=== PATIENT | female | born 1965 | race Caucasian/White ===

== ENCOUNTER → 2017-06-12 | Outpatient (CLI) | payer BC ==
[~2017-06-12] MED LIST: AMITRIPTYLINE H10 M3 PO; AMITRIPTYLINE H25 M2 PO; AMITRIPTYLINE H75 M1 PO; AMITRIPTYLINE100 MG PO; FLEXERIL PO; HYDROCODON-ACE1 EAC5 PO; IMITREX 50 MG T50 MG PO; LISINOPRIL10 MG PO; LYRICA 50 MG50 MG PO; LYRICA 75 MG CA75 MG PO; LYRICA100 MG PO; MEDROLDOSEPACK PO; METOPROLOL SUC100 MG PO; MOBIC15 MG PO; NEURONTIN800 MG PO; SERTRALINE HCL50 MG PO; WELLBUTRIN XL300 MG PO
--- NOTE | 2017-06-27 08:34 | PAINCON ---
[address] [address] PAIN MANAGEMENT CONSULTATION Name: NINO ARREDONDO Room: [facility] JUAN Patiño#: [id number] Admission: 06/12/17 Attend Phys: Yoli Wills MD Discharge: Date of : 61 Report #: [id number] THIS REPORT FOR: //name// CC: Yoli Nix DO DATE OF SERVICE: 06/12/2017 CHIEF COMPLAINT: "Pain that starts in my neck and shoots down into my left arm, which is stabbing." FOLLOWUP HISTORY: The patient is a 51-year-old female who has been referred to the pain clinic for evaluation of neck and arm pain. The patient states that she had a long history of cervical pain with pain radiating down into her arm. She treated this in a conservative method for about 10 years. The pain finally kolton to the level that it was quite problematic. She had undergone epidural steroid injections in the past. Because of failure of her situation to improve, she elected to undergo cervical treatment. She had a cervical operation about 3 months ago. She was taking hydrocodone approximately 130 mg daily. She had been on this regimen of opioid medications for the last 10 years with no untoward complications. She states that after the surgery, she stopped taking the medication and did reasonably well. There were no signs of withdrawal. She had no history of abuse of this medication. States that after stopping the medication, there were no untoward complications. After dismissal from the hospital, she was placed on a small amount of hydrocodone. She found that medication postop was helpful. After the hydrocodone use was completed, she was then placed on tramadol. She did not find the tramadol provided a significant amount of improvement. She felt that it was not much more helpful than nonsteroidal anti-inflammatory medications. She rates her pain as a 7/10 at this juncture. The patient moved to [place] to be with her daughter. She originally was in [place]. That is where her surgeon was. She states that she received her pain medications from her primary care physician in [place] and has not had any problems with her medications. She has not received any medications from a third green party or additional physicians. 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 She was aware of the requirements of opioid use as a result of working in the dentist's office. ALLERGIES: No known drug allergies. MEDICATIONS: Flexeril 10 mg daily, lisinopril 10 mg, metoprolol 100 mg, Zoloft 50 mg and has been taking this for about 2 years, Imitrex 50 mg, Wellbutrin-XL 300 mg, zolpidem 12.5 mg, used to take [place] 10/325 up to 120 mg per day prior to her neck fusion, which occurred in 02/2017. [place] [address] PAIN MANAGEMENT CONSULTATION Name: NINO ARREDONDO [facility] [id number] Admission: 06/12/17 Attend Phys: Yoli Wills MD Discharge: Date of : 61 Report #: [id number] PAST MEDICAL HISTORY: Anemia, asthma, hypertension, stomach problems, emotional problems with depression, irritable bowel syndrome, migraines, gastroesophageal reflux, chronic low back pain, and anxiety. PAST SURGICAL HISTORY: Neck fusion in 02/2017, bladder lift in 1998, hysterectomy in 10/2015, and bilateral salpingo-oophorectomy in 2016. 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 She has not worked in the last 8 months. Denies use of tobacco. Denies use of alcoholic beverages. Denies use of illicit drugs. Fifteen years of smoking history, quit in 2002. FAMILY HISTORY: Mother with asthma, migraines. Father with Alzheimer's. Daughter with Graves' disease. Son with asthma. Maternal aunt with breast cancer. Family status, mother is alive. Father is . Brother is alive. Daughter is alive. Son is alive. Maternal aunt . LABORATORY DATA: No laboratories values are available at the time of our interview. PHYSICAL EXAMINATION: VITAL SIGNS: Blood pressure 156/106, heart rate 107, respiratory rate 18, room air saturation 95%, temperature 97.3, height 5 feet 2 inches, weight 202 pounds, BMI is 36. GENERAL: The patient is a well-developed female in no distress. Appearance, appears stated age. Orientation, the patient is alert and oriented. Affect is appropriate. HEENT: Atraumatic. Ears and nose, no complaints. Buccal membranes were moist. NECK: No JVD, bruits, or masses. A well-healed proximally 2 inch incision at approximately C6 level in her neck. CHEST: Lungs are clear to auscultation. HEART: Regular rate without bruit. Normal S1, S2. ABDOMEN: Nontender. Bowel sounds present. MUSCULOSKELETAL: Spinal exam appears normal alignment. No evidence of scoliosis. No kyphosis. Gait appears slightly antalgic. The patient complains of pain in the left hip as well as some discomfort in the right low back area. Neck exam with palpation of the upper back musculature shows some increased soreness and tenderness in the area of the left scapula and rhomboid area. Cervical compression was not very problematic in a neutral position with the patient's neck extended to the right with compression. The patient notes some increased pain and discomfort radiating down in the area of the left brachial outflow tract. Back exam with flexion and extension cause some increased discomfort in the right low back area as well as some in the left hip area. The patient feels that there is a clicking sensation in the left hip area with certain movements. Left and right lateral bending [place] [address] PAIN MANAGEMENT CONSULTATION Name: NINO ARREDONDO Room: [facility]#: [id number] Admission: 06/12/17 Attend Phys: Yoli Wills MD Discharge: Date of : 61 Report #: [id number] discomfort. She was able to lean forward to about 60 degrees in an effort to touch her toes. Lumbar extension to about 10 degrees cause some increased discomfort in the low back area. Sensation on the right upper extremity is judged to be within normal limits to light touch, pinprick and cold. Sensation on the left, the patient felt that there may be a little hypersensitivity to touch on the left thumb area. Deep tendon reflexes are trace for the biceps, triceps and brachioradialis bilaterally. Muscle strength is judged to be 5/5 for the major muscle groups in the upper right side and the patient's wrist brakes and gives way with wrist extension on the left. Muscle strength is judged to be 4+/5 for the left arm. The patient has a perception of some weakness in this arm as opposed to the contralateral side. Skin color is judged to be within normal limits in the upper hand, nice warm and +1 capillary refill. Lower motor examination indicates increased pain in the right hip area with Misael maneuver. Left hip fracture pressure with the patient lying on her left lateral decubitus position cause some increased pain in the right hip area near the SI joint. Straight leg raises were negative bilaterally. Deep tendon reflexes are +2 for the knees and +1 at the ankles bilaterally. The patient is able to stand on her heels and toes. Palpation of the left greater trochanteric bursa area causes a reproduction of the patient's pain and discomfort similar to that she had been experiencing while standing and with certain movements. Spurling movement was somewhat positive on the left with pain down in the left arm. IMPRESSION: 1. Cervical radiculopathy with still evidence of nerve irritation status post cervical fusion in 02/2017. 2. Left greater trochanteric bursitis. 3. Right sacroiliac joint dysfunction. 4. Depression. 5. Hypertension. 6. Anxiety. 7. Asthma. 8. Depression. 9. Gastroesophageal reflux. 10. Irritable bowel syndrome. 11. Migraines. RECOMMENDATIONS: We spoke with the patient for about 40 minutes, greater than 50% of the time was used for counseling and education. We used models to indicate the area of probable pathology involving the cervical, lumbar and hip areas. We discussed the current situation with use of opioid medications in chronic pain patients. The patient feels that she had been taking the opioids for about 10 years with no untoward problems, had no problems with her medications and feels that given that her pain continues to be problematic despite her surgery opioids may still play some role in helping her with her pain. States that she feels somewhat depressed. Because of her chronic pain, [address] [address] PAIN MANAGEMENT CONSULTATION Name: NINO ARREDONDO Room: [facility] Patiño#: [id number] Admission: 06/12/17 Attend Phys: Yoli Wills MD Discharge: Date of : 61 Report #: [id number] she has little initiative at this point. She is living with her daughter and children. She finds it difficult to engage in activities of daily living because of this chronic pain. When her pain is under control, she is much more outgoing and able to get a lot more accomplished. She feels given her young age to have this problem is somewhat depressing. She has not taken a Medrol Dosepak since her surgery. She has used gabapentin in the past. She is not sure that medication supplied a significant amount of benefit at that time. She states that he was titrated up, but she is not sure what level was reached. She does not feel that tramadol is very efficacious, does not feel that is providing much more benefit than she received when she was taking a nonsteroidal anti-inflammatory medication. We discussed treatment options with the patient. At this juncture, we will give her a limited number of hydrocodone 10/325 pills. She will also consider the possibility of an injection in the left greater trochanteric area. She will also consider possibility of a sacroiliac joint injection for the pain in the right low back area. We explained that sometimes a cervical epidural steroid injection can be helpful even postoperatively. At this juncture, because of the cost, she would like to continue with the more conservative approach. We discussed the use of Elavil and use of norepinephrine/serotonin regulating properties over others in helping with pain. At this juncture, we will try Elavil 20 mg at bedtime and see whether or not she can glean some improvement in sleep as well as in the pain that she is experiencing radiating down into her left hand and arm. The patient will follow up in a couple of weeks. She has also been given a Medrol Dosepak, which she will take as directed over this interim. <ELECTRONICALLY SIGNED> By: Yoli Wills MD 06/27/17 0834 [id number]. José Manuel Wills MD /[facility]
== END ==
LOC: M.PC 01:36
DX: M54.12 Radiculopathy, cervical region (principal); J45.909 Unspecified asthma, uncomplicated; I10 Essential (primary) hypertension; K58.8 Other irritable bowel syndrome; K21.9 Gastro-esophageal reflux disease without esophagitis; F32.9 Major depressive disorder, single episode, unspecified; M70.62 Trochanteric bursitis, left hip; M53.3 Sacrococcygeal disorders, not elsewhere classified; F41.9 Anxiety disorder, unspecified; G43.909 Migraine, unspecified, not intractable, without status migrainosus; Z90.49 Acquired absence of other specified parts of digestive tract; Z98.890 Other specified postprocedural states

== ENCOUNTER → 2017-06-26 | Outpatient (CLI) | payer BC ==
--- NOTE | 2017-06-27 08:41 | PAINCON ---
[address] [address] PAIN MANAGEMENT CONSULTATION Name: NINO ARREDONDO Room: [facility] JUAN Patiño#: [id number] Admission: 06/26/17 Attend Phys: Yoli Wills MD Discharge: Date of : 61 Report #: [id number] THIS REPORT FOR: //name// CC: Yoli Nix DO DATE OF SERVICE: 06/26/2017 FOLLOWUP COMPLAINT: "I am still having problems sleeping and I have had no real change with the medications." FOLLOWUP HISTORY OF PRESENT ILLNESS: The patient is a 51-year-old female who has moved from [place] to [place]. She is here with her daughter. As you may recall, she has had cervical pain with radiation down into her arm. She has undergone surgery for this problem with fusion in February 2017. She is having continued pain and discomfort in her left arm. She states that she was taking some opioid medication. It was hydrocodone about 130 mg per day. This has been over the last 10 years. At this juncture, she rates her pain as 8. It involves her left arm. She also has pain in her left hip, which remains problematic and worsens with activity. She is not taking nonsteroidal anti-inflammatory medications at this point. She has had no problems with nonsteroidal anti-inflammatory medications in the past. She finds that the Flexeril medication is helpful at bedtime. She took the Medrol Dosepak, which was provided. She states that she took it as directed. She did not note an appreciable amount of change in her symptomatology. She continues with pain in her neck as well as pain in her hip and back area. Had no complications from the amitriptyline. She was taking 20 mg at bedtime. She did not feel that there was any significant change there. She has not noticed any alteration in her sensorium or complications with the amitriptyline. ALLERGIES: No known drug allergies. CURRENT MEDICATIONS: Flexeril 10 mg daily, lisinopril 10 mg, metoprolol 100 mg, Zoloft 50 mg. She has been taking this medication for about 2 years. Imitrex 50 mg as needed, Wellbutrin 300 mg, zolpidem 12.5 mg. The patient has been provided [place] 10 mg b.i.d. through our facility. PAIN CLINIC ASSESSMENT: 1. History of osteoarthritis, no significant complications. History of rheumatoid arthritis, no significant complications. 2. Height 5 feet 2 inches, weight 205 pounds, BMI is 37. Blood pressure 157/91, heart rate is 98, temperature 98.3. 3. Pain intensity 8/10. 4. Fall risk. Denies any significant dizziness nor has the patient fallen in the last 3 [place] [address] PAIN MANAGEMENT CONSULTATION Name: NINO ARREDONDO Room: [facility] Haroon#: [id number] Admission: 06/26/17 Attend Phys: Yoli Wills MD Discharge: Date of : 61 Report #: [id number] 5. The patient is not on blood thinners. 6. Hypertension. The patient will continue her antihypertensive medications. 7. Opioid therapy greater than 6 weeks. The patient states that she had been on opioid medications for the past 10 years. A script for one month of hydrocodone 10/325 has been prescribed. If the patient remains in the pain clinic, a contract will be provided and assessed. 8. Functional, her pain impact score is rated at 53. Generally 9-10 values reported on each of the criteria. 9. The patient denies using recreational drugs. Denies use of tobacco. Denies use of other illicit medications. PHYSICAL EXAMINATION: GENERAL: A well-developed, well-nourished female, appears stated age. Orientation: Alert and oriented x 3. Affect is appropriate. NECK: Without JVD. HEART: Regular. ABDOMEN: Nontender. MUSCULOSKELETAL: The patient complains of pain in the right lower back area in the area of the SI joint. Also, she has pain and discomfort in the left greater trochanteric area. She complains of pain in the cervical area with pain radiating down into the left arm and posterior left shoulder with numbness and tingling in her fingers. Skin color appears normal. IMPRESSION: 1. Cervical radiculopathy, still with evidence of nerve root irritation status post cervical fusion on 03/16/2017, a well-healed scar in the anterior portion of her neck. 2, Left greater trochanteric bursitis. 3. Right sacroiliac joint dysfunction. 4. Depression. 5. Hypertension. 6. Anxiety. 7. Asthma. 8. Depression. 9. Gastroesophageal reflux. 10. Irritable bowel syndrome. 11. Migraines. RECOMMENDATIONS: We discussed treatment options with the patient. We again discussed the need to use as many nonopioid medications as possible to help control her pain. She is not taking a nonsteroidal anti-inflammatory medication. She states that she is not having a problem with her stomach and has not had ulcers in the past, so we will try Mobic 15 mg 1 p.o. daily and note its efficacy. She will monitor her GI for symptoms of irritation. We will provide another script for hydrocodone 10 mg one p.o. b.i.d. The patient requested a total of 4 tablets per day. We explained to her that given this new [address] [address] PAIN MANAGEMENT CONSULTATION Name: NINO ARREDONDO [id number] Admission: 06/26/17 Attend Phys: Yoli Wills MD Discharge: Date of : 61 Report #: [id number] environment and the request of the [facility], opioids should be used as frugally as possible. We will increase the patient's Elavil from 10 mg at bedtime to 25 mg at bedtime and the patient will take 2 tablets in 2 days if she notices no change in her pain and discomfort. She is still having difficulty with sleep. We will continue to slowly increase this medication as she is able to tolerate it. Hopefully, it will be beneficial with her sleep as well as help with the pain that she is experiencing. The patient can continue with Flexeril at bedtime as well. We explained to her that we do not write for Ambien or those types of medications. Sometimes these have been thought to be problematic and not efficacious in treating chronic pain. They can sometimes exacerbate it. The patient states that she thinks she took gabapentin in the past. She is not sure what level this medication was advanced to. She states that she financially at this juncture is not able to undergo injections given their cost. We will consider in the future those treatments if she should find it within her budget. We would like to thank you for letting us participate in her care. We hope she continues to improve. She will call us if she has any concerns regarding her medications. <ELECTRONICALLY SIGNED> By: Yoli Wills MD 06/27/17 0841 [id number] 2108N. José Manuel Wills MD /[facility]
== END ==
LOC: M.PC 01:39
DX: M54.12 Radiculopathy, cervical region (principal); M70.62 Trochanteric bursitis, left hip; M53.3 Sacrococcygeal disorders, not elsewhere classified; F32.9 Major depressive disorder, single episode, unspecified; I10 Essential (primary) hypertension; F41.9 Anxiety disorder, unspecified; J45.909 Unspecified asthma, uncomplicated; K21.9 Gastro-esophageal reflux disease without esophagitis; K58.9 Irritable bowel syndrome, unspecified; G43.909 Migraine, unspecified, not intractable, without status migrainosus

== ENCOUNTER → 2017-07-31 | Outpatient (CLI) | payer BC ==
--- NOTE | 2017-08-08 14:39 | PAINCON ---
[address] [address] PAIN MANAGEMENT CONSULTATION Name: NINO ARREDONDO Room: [facility] JUAN Burkett.#: [id number] Admission: 07/31/17 Attend Phys: Yoli Wills MD Discharge: Date of : 61 Report #: [id number] THIS REPORT FOR: //name// CC: Yoli Nix DO DATE OF SERVICE: 07/31/2017 CHIEF COMPLAINT: Neck pain. FOLLOWUP HISTORY: The patient is a 52-year-old female who has been seen in the pain clinic, and has a history of cervical radiculopathy. She has underwent surgical fusion in 02/2017. She has moved here from [place]. States that she continues to have pain and discomfort involving the neck and radiating down into her left arm. She continues to try to exercise, neck pain is still problematic down in the left arm with a burning sensation to the level of her wrist involving her fingers. She does feel frustrated secondary to the pain because it limits her activities of daily living. She finds that the hydrocodone has been helpful. She feels that the Elavil 50 mg at bedtime is helpful. She is not having any hungover sensations as a result of its use. Continues with Meloxicam 15 mg daily. Rates her pain as an 8/10. She is somewhat discontent with her situation. She felt that after having the cervical fusion the things would have improved by now. She finds it difficult to stay engage with her family members, particularly her young grandchildren. She feels that 4 hydrocodone per day would be more beneficial. She would like to increase her medications. She is aware that opioid medications can be habit forming. She is also aware that they can lose their effectiveness over a prolonged period of time. She states that she had taken up to 130 mg of hydrocodone per day. ALLERGIES: No known drug allergies. MEDICATIONS: Reviewed. She has taken Flexeril 10 mg p.o. daily, lisinopril 10 mg, metoprolol 100 mg, Zoloft 50 mg. She continues to take Imitrex 50 mg p.r.n. headache, migraines, Wellbutrin 300 mg, zolpidem 12.5 mg. The patient also finds [place] 10 mg b.i.d. helpful, but somewhat lacking. PAIN CLINIC ASSESSMENT: 1. History of osteoarthritis, no significant complications. 2. History of rheumatoid arthritis, no significant complication. 3. Height 5 feet 2 inches, weight 205 pounds, BMI 37. 4. Vital signs: Blood pressure 126/88, pulse 70, respiratory rate 16, room air saturation 91%, temperature 97.8. 5. Pain intensity 10. 6. Fall risk. The patient denies any significant problems with ambulation [place] [address] PAIN MANAGEMENT CONSULTATION Name: NINO ARREDONDO Room: [facility]#: [id number] Admission: 07/31/17 Attend Phys: Yoli Wills MD Discharge: Date of : 61 Report #: [id number] 7. The patient is not on blood thinners. 8. Hypertension. The patient continues to take her antihypertensive medications. 9. Opioids greater than 6 weeks. The patient states that she has been on opioids greater than 6 weeks and has been taking them for about the last 10 years. She has signed a contract with our pain clinic and she will only get her medications from 1 source. 10. Functional opacity exam. The patient's pain impact score is 53. Most of her values are 9-10 in this category. 11. Recreational drug use. The patient denies recreational drug use. 12. Tobacco: The patient denies use of tobacco. 13. Alcohol. The patient denies use of alcohol on a regular basis. PHYSICAL EXAMINATION: GENERAL: The patient is a well-developed, well-nourished female. She appears her stated age. Orientation, she is alert and oriented x 3. Affect is appropriate. NECK: Neck is without JVD or adenopathy. HEART: Regular rate. ABDOMEN: Nontender. MUSCULOSKELETAL: The patient continues to have pain and discomfort in the lower portion of her back. She also complains of some pain in the SI joint area. Notes pain and discomfort in the left greater trochanteric area. Has pain in the cervical area with pain radiating down into the left arm with some numbness, tingling and discomfort. Has some left posterior shoulder pain in the area of the C6 nerve distribution. The color of the skin appears normal. Normal capillary refill. IMPRESSION: 1. Cervical radiculopathy, still with evidence of nerve root irritation, status post fusion on 03/16/2018. Well healed scar in the anterior portion of neck. 2. Left greater trochanteric bursitis. 3. Right sacroiliac joint dysfunction. 4. Depression. 5. Hypertension. 6. Anxiety. 7. Asthma. 8. Depression. 9. Gastroesophageal reflux. 10. Irritable bowel syndrome. 11. Migraines. RECOMMENDATIONS: We discussed treatment options with the patient. At this juncture, she continues to have pain and discomfort. We explained that use of opioid medications can be problematic. Possibility of becoming dependent on opioids was reviewed. We discussed the general consensus of opioid use and the [address] [place] [address] PAIN MANAGEMENT CONSULTATION Name: NINO ARREDONDO Room: [facility]#: [id number] Admission: 07/31/17 Attend Phys: Yoli Wills MD Discharge: Date of : 61 Report #: [id number] media at this juncture, ~65.000 as a result of their use. We will provide her with hydrocodone 10 mg 1 p.o. t.i.d. Total of 90 tablets have been written. The patient will also continue with her nonsteroidal anti-inflammatory, Mobic. She will mind her GI system. She will call us if she has any problems with her medications. A script for her medications has been rewritten. The patient's Elavil will be increased from 50 mg per night to 75 mg per night. We would like to thank you for letting us participate in her care. We hope she continues to improve. <ELECTRONICALLY SIGNED> By: Yoli Wills MD 08/08/17 1439 [id number] 1526N. José Manuel Wills MD /[facility]
== END ==
LOC: M.PC 01:48
DX: M54.12 Radiculopathy, cervical region (principal); I10 Essential (primary) hypertension; F32.9 Major depressive disorder, single episode, unspecified; F41.9 Anxiety disorder, unspecified; J45.909 Unspecified asthma, uncomplicated; K21.9 Gastro-esophageal reflux disease without esophagitis; G43.909 Migraine, unspecified, not intractable, without status migrainosus; K58.8 Other irritable bowel syndrome

== ENCOUNTER → 2017-08-28 | Outpatient (CLI) | payer BC ==
--- NOTE | 2017-08-29 08:21 | PAINCON ---
[address] [address] PAIN MANAGEMENT CONSULTATION Name: NINO ARREDONDO Room: [facility] BetzaidaTaiNoris.#: [id number] Admission: 08/28/17 Attend Phys: Yoli Wills MD Discharge: Date of : 61 Report #: [id number] THIS REPORT FOR: //name// CC: Yoli Nix DO DATE OF SERVICE: 08/28/2017 FOLLOWUP COMPLAINT: Pain in the neck. FOLLOWUP HISTORY: The patient is a 52-year-old female who has been seen in the pain clinic because of cervical radiculopathy. As you recall, she underwent cervical fusion in 02/2017. She has moved to [place] from [place]. She would like to be closer to her family members. Continues to have pain and discomfort, which radiates down into her left arm. She notes a burning sensation down to the level of wrist. Still has some involvement of her fingers. She has used Elavil. She does not feel that this made a significant impact upon her condition. She has tried gabapentin in the past. We have discussed possible trial of Lyrica. The patient would like to try this given that she is not having significant improvement with Elavil at 75 mg at bedtime. She rates her pain as a 5/10 today. ALLERGIES: No known drug allergies. MEDICATIONS: Reviewed amitriptyline 75 mg p.o. at bedtime, buspirone, Wellbutrin 300 mg daily, Flexeril 20 mg at bedtime, 10 mg tablets, hydrocodone 10/325, lisinopril 10 mg daily, Mobic 15 mg daily, metoprolol 100 mg daily, Zoloft 50 mg daily for a total of 100 mg, Imitrex 50 mg daily p.r.n. PAIN CLINIC ASSESSMENT: 1. The patient is not being treated for rheumatoid arthritis or osteoarthritis. 2. Height 5 feet 2 inches, weight 206 pounds, BMI is 37. 3. Vital signs: Blood pressure 119/63, heart rate 63, respiratory rate 16, room air saturation 97%, temperature 98.3. 4. Pain intensity 10/04. 5. Fall risk. The patient has not fallen in the last 3 months. 6. The patient is not on a blood thinner. 7. Hypertension. The patient is being treated for hypertension. 8. Opioids greater than 6 weeks. The patient is on an opioid contract with her pain clinic. 9. Functional capacity exam. Rate, 53/70. 10. Recreational drug use. The patient denies recreational drug use. 11. Tobacco: The patient denies use of tobacco. 12. Alcohol. The patient [place] [address] PAIN MANAGEMENT CONSULTATION Name: NINO ARREDONDO Room: [facility]#: [id number] Admission: 08/28/17 Attend Phys: Yoli Wills MD Discharge: Date of : 61 Report #: [id number] PHYSICAL EXAMINATION: GENERAL: The patient is well-developed, well-nourished female. She appears her stated age. ORIENTATION: The patient is alert and oriented x 3. Her affect is appropriate. Speech is smooth. NECK: Without adenopathy, JVD or bruits. HEART: Regular rate. ABDOMEN: Nontender. MUSCULOSKELETAL: The patient continues to have pain and discomfort in the lower portion of her back. She also has pain and discomfort in the SI joint area. She notes pain and discomfort in the lower greater trochanteric area. She has pain in the cervical area with pain radiating down to the left arm with some numbness, tingling and discomfort. She has left posterior shoulder discomfort in the area of the C6 nerve distribution. Capillary refill is within normal limits. IMPRESSION: 1. Cervical radiculopathy, still with evidence of nerve root irritation, status post fusion on 03/18/2017. 2. The patient has a well-healed scar in the anterior portion of her neck. 3. Left greater trochanteric bursitis. 4. Right sacroiliac joint dysfunction. 5. Depression. 6. Hypertension. 7. Anxiety. 8. Asthma. 9. Depression. 10. Gastroesophageal reflux. 11. Irritable bowel syndrome. 12. Migraines. RECOMMENDATIONS: We discussed treatment options with the patient. At this juncture, we will try Lyrica 50 mg 1 p.o. t.i.d. A script for this medication has been written. The patient will also continue with her current use of meloxicam and [place]. She will call us if she has any problem with her medications. A script for her medications have been written. Lyrica samples has been given. Hopefully, if she takes this. She is able tolerate the medication. We would like to thank you for letting us to participate in her care. We hope she continues to improve. <ELECTRONICALLY SIGNED> By: Yoli Wills MD 08/29/17 0821 [id number]. José Manuel Wills MD /[facility]
== END ==
LOC: M.PC 03:01
DX: M54.12 Radiculopathy, cervical region (principal); I10 Essential (primary) hypertension; F32.9 Major depressive disorder, single episode, unspecified; K21.9 Gastro-esophageal reflux disease without esophagitis; F41.9 Anxiety disorder, unspecified; J45.909 Unspecified asthma, uncomplicated; K58.9 Irritable bowel syndrome, unspecified; M70.62 Trochanteric bursitis, left hip; G43.909 Migraine, unspecified, not intractable, without status migrainosus

== ENCOUNTER → 2017-10-04 | Outpatient (CLI) | payer BC ==
--- NOTE | 2017-10-09 10:23 | PAINCON ---
[address] [address] PAIN MANAGEMENT CONSULTATION Name: NINO ARREDONDO Room: [facility] M.Noris.#: [id number] Admission: 10/04/17 Attend Phys: Yoli Wills MD Discharge: Date of : 61 Report #: [id number] THIS REPORT FOR: //name// CC: Yoli Nix DO DATE OF SERVICE: 10/04/2017 FOLLOWUP COMPLAINT: "I am not sure that the Lyrica has made a difference." FOLLOWUP HISTORY: The patient is a 52-year-old female who has been followed in the pain clinic because of chronic pain in her neck. As you may recall, she has had surgery. She continues to have pain and discomfort despite the fusion in 02/2017. She has moved here from [place]. Notes that she still has pain and discomfort when she lifts her arms. She has a burning sensation down to the level of the wrist. We tried to increase change her medication to Lyrica to note its efficacy. She had tried gabapentin in the past with no significant improvement. She rates her pain as a 7/10 today. Continues to have some pain in her hands. Other joints are showing signs of increased discomfort as well. Notes her pain is worse with activities such as standing, sitting, climbing stairs, lifting and bending. Medications, heat and cold are somewhat helpful. The weather pattern has changed and improved to more warm picture. ALLERGIES: No known drug allergies. CURRENT MEDICATIONS: Elavil 75 mg p.o. at bedtime, BuSpar, Wellbutrin 300 mg, Flexeril 20 mg at bedtime, hydrocodone 10/325, lisinopril 10 mg daily, Mobic 15 mg daily, metoprolol 100 mg daily, Zoloft 50 mg daily for a total of 100 mg, Imitrex 50 mg p.r.n. PAIN CLINIC ASSESSMENT: 1. The patient is not being treated for rheumatoid arthritis or osteoarthritis. 2. Height 5 feet 2 inches, weight 202 pounds, BMI is 37. 3. VITAL SIGNS: Blood pressure 138/80, heart rate 82, respiratory rate 16, room air saturation 92%, temperature 98.3. 4. Pain intensity. The patient rates her pain as a 7/10. 5. Fall risk. The patient has not fallen in the last 3 months. 6. Blood thinner. The patient is not on a blood thinner. 7. Hypertension. The patient is being treated for hypertension. 8. Opioids greater than 6 weeks. The patient is on a contract with the pain clinic and receives [place] for her pain condition. 9. Risk assessment tool. 10. Functional assessment tool. 11. Recreational drug use. The patient denies recreational drug use. 12. Tobacco: The patient [place] [address] PAIN MANAGEMENT CONSULTATION Name: NINO ARREDONDO Room: [facility]#: [id number] Admission: 10/04/17 Attend Phys: Yoli Wills MD Discharge: Date of : 61 Report #: [id number] 13. Alcohol. The patient denies use of alcoholic beverages. PHYSICAL EXAMINATION: GENERAL: The patient is a well-developed, well-nourished female. She appears her stated age. She has a 3-year-old grandson with her. They are interacting well. Speech is fluent. Orientation: The patient is alert and oriented x 3. Her affect is appropriate. HEENT: Normocephalic, atraumatic. Extraocular eye muscles intact. Sclerae nonicteric. Mucous membranes are moist. NECK: Without adenopathy. The patient has some limitation in movement, left and right cervical extension and flexion. Has a well-healed scar in the anterior portion of her neck. MUSCULATURE: The patient continues to have pain and discomfort in her lower back. She also has pain and discomfort in the upper neck area. Has pain radiating down into her arm with numbness, tingling and discomfort involving the left arm. Some discomfort in the C6 distribution. IMPRESSION: 1. Cervical radiculopathy, status post anterior cervical disc surgery in February 2017 with continued nerve root irritation. 2. Well-healed scar at the anterior portion of her neck. 3. Left greater than right trochanteric bursitis. 4. History of sacroiliac joint dysfunction. 5. Depression. 6. Hypertension. 7. Anxiety. 8. Asthma. 9. Gastroesophageal reflux. 10. Irritable bowel syndrome. 11. Migraines. RECOMMENDATIONS: We discussed treatment options with the patient. At this juncture, we will increase her Lyrica to a higher level. She is taking 50 mg tablets. We will give her 75 mg tablets. It appears that she has been taking 150 mg of Lyrica by taking 3 tablets per day. We will increase her Lyrica to 75 mg p.o. t.i.d. for a total of 225 mg. She will call us if she has any problems with her medications. We would like to thank you for letting us participate in her care. We hope she continues to improve. <ELECTRONICALLY SIGNED> By: Yoli Wills MD 10/09/17 1023 1434 1916N. José Manuel Wills MD /darby
== END ==
LOC: M.PC 01:37
DX: M54.12 Radiculopathy, cervical region (principal); M70.62 Trochanteric bursitis, left hip; M70.61 Trochanteric bursitis, right hip; F32.9 Major depressive disorder, single episode, unspecified; I10 Essential (primary) hypertension; F41.9 Anxiety disorder, unspecified; J45.909 Unspecified asthma, uncomplicated; K21.9 Gastro-esophageal reflux disease without esophagitis; G43.909 Migraine, unspecified, not intractable, without status migrainosus; K58.9 Irritable bowel syndrome, unspecified

== ENCOUNTER → 2017-11-06 | Outpatient (CLI) | payer BC ==
--- NOTE | 2017-11-07 14:20 | PAINCON ---
[facility] [address] [place] [address] PAIN MANAGEMENT CONSULTATION Name: NINO ARREDONDO Room: [facility] JUAN Burkett.#: [id number] Admission: 11/06/17 Attend Phys: Yoli Wills MD Discharge: Date of : 61 Report #: [id number] THIS REPORT FOR: //name// CC: Yoli Nix DATE OF SERVICE: 11/06/2017 FOLLOWUP COMPLAINT: "Still having some pain and I think the Lyrica was helpful." FOLLOWUP HISTORY: The patient is a 52-year-old female, who has moved to [place]. As you recall, she has pain and discomfort in her neck. She has moved to be closer to family members. She has had surgery because of chronic pain. She continues to have nerve root irritation with burning down to the level of her wrist. She tried Lyrica and felt that there was some benefit from this medication. She checked with the pharmacy. The [place] was out of her range, so she did not get more. She was given a trial pack of 75 mg, which she took b.i.d. Notes that she continues to have pain and discomfort in other areas such as standing, sitting, climbing, and bending. She has continued to employee heat and cold. She finds that they are somewhat helpful. Notes that the pain improves now that the weather pattern has stabilized somewhat. She finds that some days, the pain is more problematic. She feels that [place] 10 mg 1 p.o. t.i.d., sometimes is not quite enough. She ran out of her medications a couple of days ago because of worsening pain. Continues to have some weakness in her hands. ALLERGIES: No known drug allergies. CURRENT MEDICATIONS: Wellbutrin 300 mg XL, Flexeril 10 mg 1 p.o. t.i.d., hydrocodone 10/325 one p.o. t.i.d., lisinopril 10 mg daily, Meloxicam 15 mg, metoprolol 100 mg, Zoloft 50 mg, Imitrex 50 mg p.r.n. PAIN CLINIC ASSESSMENT: 1. The patient is not being treated for rheumatoid arthritis, but does have some osteoarthritic changes in her neck. 2. Height 5 feet 2 inches, weight 198 pounds, BMI is 36.2. 3. Vital Signs: Blood pressure 124/79, heart rate 74, respiratory rate 16, room air saturation is 95%, temperature 98.2. 4. Pain intensity 4/10. 5. Fall risk. The patient has not fallen in the last 3 months. 6. Blood thinner. The patient is not on a blood thinning medication. 7. Hypertension. The patient is being treated for hypertension. 8. Opioid therapy. The patient receives medications from one physician in the pain clinic. 9. [place] [address] PAIN MANAGEMENT CONSULTATION Name: NINO ARREDONDO Room: [facility]#: [id number] Admission: 11/06/17 Attend Phys: Yoli Wills MD Discharge: Date of : 61 Report #: [id number] 10. Functional assessment tool. 11. Recreational drug use. The patient denies use of recreational drugs. 12. Tobacco: The patient denies use of tobacco. 13. Alcohol: The patient denies use of alcoholic beverages. PHYSICAL EXAMINATION: GENERAL: The patient is a well-developed, well-nourished female. She appears her stated age. She is alert and oriented x 3. Her 3-year-old grandson is with her. They are interacting well. Speech is fluent. HEENT: Normocephalic, atraumatic. Extraocular eye muscles intact. Sclerae nonicteric. Hearing is within normal limits. Mucous membranes are moist. NECK: Without adenopathy. The patient has some limitation in movement of her left and right neck with some changes and discomfort with extension and flexion. She has a well-healed scar in the anterior portion of her neck. MUSCULOSKELETAL: The patient continues to have pain and discomfort in her lower back as well. She has some pain in the lower back with activities. Sitting, bending, standing, twisting, lifting and other activities. She continues to have pain, which is radiating down into her left arm with numbness and tingling. Some continued discomfort in the C6 distribution. IMPRESSION: 1. Cervical radiculopathy status post anterior cervical disk surgery in 02/2017 with continued nerve root irritation. 2. Well-healed scar in the anterior portion of her neck. 3. Left greater than right trochanteric bursitis. 4. History of sacroiliac joint dysfunction. 5. Depression. 6. Hypertension. 7. Anxiety. 8. Asthma. 9. Gastroesophageal reflux. 10. Irritable bowel syndrome. 11. Migraines. RECOMMENDATIONS: We discussed treatment options with the patient. At this juncture, we will continue with her Mobic. We reminded her that nonsteroidal anti-inflammatory medications such as Mobic should not be taken with ibuprofen, either one or the other item. We have given the patient Lyrica sample 75 mg 1 p.o. b.i.d. She will try this medication again and note its efficacy. She felt that that was helpful in the interim. She will then try to get the medication. There is a $25 copay coupon that comes with it and hopefully, she will find that with use of her insurance affordable to help provide pain benefit. The patient's Flexeril 10 mg 1 p.o. t.i.d. has been rewritten. She states that she continues to have some difficulty with activities of daily living. She babysits her grandchild, he is 3 years old. He will be going off to school in the near future. We have increased her hydrocodone from 10 mg t.i.d. to 10 mg every 4-6 [place] [address] PAIN MANAGEMENT CONSULTATION Name: NINO ARREDONDO Room: [facility].#: [id number] Admission: 11/06/17 Attend Phys: Yoli Wills MD Discharge: Date of : 61 Report #: [id number] hours p.r.n. The patient has been given 105 hydrocodone tablets. Hopefully, this will get her over the difficult days. Again, we have discussed the limitations in opioid medication as proposed by the CDC. We would like to thank you for letting us participate in her care. We hope she continues to improve. A script for Mobic 15 mg daily, hydrocodone 10/325 one p.o. every 4-6 hours and an additional script for Lyrica 75 mg have been provided to the patient. Hopefully, things continue to improve. <ELECTRONICALLY SIGNED> By: Yoli Wills MD 11/07/17 1420 1355 2003N. José Manuel Wills MD /nt
== END ==
LOC: M.PC 00:42
DX: M54.12 Radiculopathy, cervical region (principal); I10 Essential (primary) hypertension; J45.909 Unspecified asthma, uncomplicated; M70.62 Trochanteric bursitis, left hip; F32.9 Major depressive disorder, single episode, unspecified; F41.9 Anxiety disorder, unspecified; K21.9 Gastro-esophageal reflux disease without esophagitis; K58.9 Irritable bowel syndrome, unspecified; G43.909 Migraine, unspecified, not intractable, without status migrainosus

== ENCOUNTER → 2017-11-29 | Outpatient (CLI) | payer BC ==
--- NOTE | 2017-12-26 14:16 | PAINCON ---
[address] [address] PAIN MANAGEMENT CONSULTATION Name: NINO ARREDONDO Room: [facility] JUAN Patiño#: [id number] Admission: 11/29/17 Attend Phys: Yoli Wills MD Discharge: Date of : 61 Report #: [id number] THIS REPORT FOR: //name// CC: Yoli Nix DATE OF SERVICE: 11/29/2017 FOLLOWUP COMPLAINT: "Here for renewal of the medications. I am still having pain." FOLLOWUP HISTORY: The patient is a 52-year-old female who has been followed in the pain clinic because of chronic pain. She returned to [place] to be with her daughter. She has had surgery. The surgery involved her neck because of cervical radiculopathy. This was in 02/2017. She continues to have some nerve root irritation involving the left arm. She has continued to use [place] 10 mg every 4-6 hours as well as Lyrica. Finds that Mobic and Flexeril are helpful. She still has pain and is not sure that the addition of Lyrica has been sufficiently helpful. She would like to continue with her current medications. She notes that activities of daily living such as climbing stairs, standing, sitting, changes in temperature, lifting and bending can be problematic. She does have a young grandchild. Lifting him is not possible secondary to the pain and discomfort which she is experiencing. She has returned today for renewal of her medication. She has a daughter who has had spinal problems. The patient suffers from scoliosis. She had surgery when she was younger. It became infected. The rods were then removed. 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 There is some rotation developing. The patient is considering surgery in [place] to help correct her spine. The patient is somewhat concerned about this surgery, which is scheduled to happen in the near future. ALLERGIES: No known drug allergies. CURRENT MEDICATIONS: Wellbutrin 300 mg, Flexeril 10 mg 1 p.o. t.i.d., hydrocodone 10/325 one p.o. t.i.d., lisinopril 10 mg daily, Meloxicam 15 mg, metoprolol 100 mg, Zoloft 50 mg, Imitrex 50 mg, Lyrica 75 mg b.i.d. PAIN CLINIC ASSESSMENT: 1. The patient is not being treated for rheumatoid arthritis, but does have some osteoarthritic changes in her neck. 2. Height 5 feet 2 inches, weight 201 pounds, BMI is 36. 3. Vital signs: Blood pressure 138/85, heart rate 86, respiratory rate 16, room air saturation 95%, temperature 98.2. 4. Pain intensity 7/10. 5. Fall risk. The patient has not fallen in the last 3 [place] [address] PAIN MANAGEMENT CONSULTATION Name: NINO ARREDONDO Room: [facility]#: [id number] Admission: 11/29/17 Attend Phys: Yloi Wills MD Discharge: Date of : 61 Report #: [id number] 6. Blood thinner. The patient is not on a blood thinning medication. 7. Hypertension. The patient is being treated for hypertension. 8. Opioid therapy. The patient is on an opioid medication, receives her medication from the pain clinic. 9. Risk assessment tool. 10. Functional assessment tool. 11. Recreational drug use. The patient denies use of recreational drug use. 12. Tobacco: The patient denies use of tobacco. 13. Alcohol: The patient denies use of alcoholic beverages. PHYSICAL EXAMINATION: GENERAL: The patient is a well-developed, well-nourished female. She appears her stated age. She is alert and oriented x 3. Her speech is fluent. HEENT: Normocephalic, atraumatic. Extraocular eye muscles intact. Sclerae nonicteric. Hearing within normal limits. Mucous membranes are moist. NECK: Without adenopathy. The patient has some limited movement secondary to the surgery changes with flexion and extension, lumbar rotation, cervical rotation. MUSCULOSKELETAL: The patient continues to have pain and discomfort in her back. She also has pain in the lower back area, which somewhat limits her activities such as bending, twisting, and lifting. Has pain that continues to radiate down into her left arm with numbness and tingling. This is in the C6 distribution. IMPRESSION: 1. Cervical radiculopathy, status post anterior cervical disk fusion and anterior cervical disk surgery, 02/2017 with continued nerve root irritation. 2. Well-healed scar in the anterior portion of her neck. 3. Left greater than right trochanteric bursitis. 4. History of sacroiliac joint dysfunction. 5. Depression. 6. Hypertension. 7. Anxiety. 8. Asthma. 9. Gastroesophageal reflux. 10. Irritable bowel syndrome. 11. Migraine. RECOMMENDATIONS: We discussed treatment options with the patient. We will continue with the Lyrica. We explained that it sometimes takes 4-6 weeks or so noted difference or change. May have to continue to titrate this medication forward. We have discussed the use of opioid medications. Indicates that opioid medications can become problematic. In the media discussion, it is recommended that opioid medications be limited. The patient is aware of this and we will continue to try to make advancements and increasing her comfort by [facility] [address] [place] [address] PAIN MANAGEMENT CONSULTATION Name: NINO ARREDONDO Room: [facility] JUAN Burkett.#: [id number] Admission: 11/29/17 Attend Phys: Yoli Wills MD Discharge: Date of : 61 Report #: [id number] decreasing her pain. We would like to thank you for letting us participate in her care. We hope she continues to improve. <ELECTRONICALLY SIGNED> By: Yoli Wills MD 12/26/17 1416 1556 0217N. José Manuel Wills MD /PMT
== END ==
LOC: M.PC 03:53
DX: M54.12 Radiculopathy, cervical region (principal); M70.62 Trochanteric bursitis, left hip; F32.9 Major depressive disorder, single episode, unspecified; I10 Essential (primary) hypertension; F41.9 Anxiety disorder, unspecified; J45.909 Unspecified asthma, uncomplicated; K21.9 Gastro-esophageal reflux disease without esophagitis; K58.9 Irritable bowel syndrome, unspecified; G43.909 Migraine, unspecified, not intractable, without status migrainosus

== ENCOUNTER → 2018-01-01 | Outpatient (CLI) | payer BC ==
--- NOTE | 2018-01-23 16:41 | PAINCON ---
[address] [address] PAIN MANAGEMENT CONSULTATION Name: NINO ARREDONDO Room: [facility] JOSE DGillian Burkett.#: [id number] Admission: 01/01/18 Attend Phys: Yoli Wills MD Discharge: Date of : 61 Report #: [id number] THIS REPORT FOR: //name// CC: Yoli Nix DATE OF SERVICE: 01/01/2018 CHIEF COMPLAINT: Cervical radiculopathy. FOLLOWUP HISTORY: The patient is a 52-year-old female who has been followed in the pain clinic because of continued pain despite undergoing cervical treatment and fusion. Her surgery was in February 2017. Continues to have pain and discomfort down her neck involving the left arm. Finds that Alamo was helpful. Still has limited her ability to engage in activities of daily living because of the pain. Sitting, standing, walking stairs, lifting and bending can be problematic. Finds that her medications are helpful. Rates her pain as a 7/10 at this juncture. The patient felt that she came in contact with something have caused swelling, pain, nausea. It resolved on its own. She stopped all her medications and I restarted them. She has not had a return of this problem. We would like to continue with her Flexeril, Mobic, Narcan, Alamo, and Lyrica. The patient's daughter is about to undergo significant spine surgery in [place]. Her daughter's spine has a 90 degree curvature. She is going to have extensive rodding of the posterior portion of her back. ALLERGIES: No known drug allergies. CURRENT MEDICATIONS: Wellbutrin 300 mg, Flexeril 10 mg one p.o. t.i.d., hydrocodone 10/325 one p.o. t.i.d., lisinopril 10 mg daily, Meloxicam 15 mg, metoprolol 100 mg, Zoloft 50 mg, Imitrex 50 mg, Lyrica 75 mg b.i.d. PAIN CLINIC ASSESSMENT: 1. The patient has not been treated for rheumatoid arthritis, but does have some arthritic changes in her neck. 2. Height 5 feet 2 inches, weight 193 pounds, BMI is 35. 3. Vital signs: Blood pressure 143/89, heart rate 61, respiratory rate 18, room air saturation 93%, temperature 98.4. 4. Pain score 7/10. 5. The patient has not fallen in the last 3 months. 6. Blood thinner. The patient is not on a blood thinning medication. 7. Hypertension. The patient is being treated for hypertension. 8. Opioid therapy. The patient is receiving opioid medications to help control her pain. 9. Risk assessment tool. 10. [place] [address] PAIN MANAGEMENT CONSULTATION Name: NINO ARREDONDO Room: [facility]#: [id number] Admission: 01/01/18 Attend Phys: Yoli Wills MD Discharge: Date of : 61 Report #: [id number] 11. Recreational drug use. The patient denies use of recreational drugs. 12. Tobacco: The patient denies use of tobacco. 13. Alcohol: The patient denies use of alcoholic beverages. PHYSICAL EXAMINATION: GENERAL: The patient is a well-developed, well-nourished female. She appears her stated age. She is alert and oriented x 3. Her speech is fluent. HEENT: Normocephalic, atraumatic. Extraocular eye muscles intact. Sclerae are nonicteric. Hearing is within normal limits. Mucous membranes are moist. NECK: Without adenopathy. The patient has some limited motion secondary to the surgery with decreased flexion and extension. Lumbar rotation is somewhat limited. MUSCULOSKELETAL: The patient does have some discomfort in her low back. Does not have significant scoliosis, kyphosis or lordosis. Muscle strength in the lower extremities is judged to be 5/5 for the major muscle groups. The patient continues to have pain and discomfort in the C6 distribution of her left arm. IMPRESSION: 1. Cervical radiculopathy, status post anterior cervical disk fusion and disk surgery on 02/2017. 2. Well-healed scar in the anterior portion of the neck. 3. Left greater than right greater trochanteric bursitis history. 4. History of sacroiliac joint dysfunction. 5. Depression. 6. Hypertension. 7. Anxiety. 8. Asthma. 9. Gastroesophageal reflux. 10. Irritable bowel syndrome. 11. Migraines. RECOMMENDATIONS: We discussed treatment options with the patient. We will continue with her current medical regimen. She is concerned that her daughter is going to have surgery. This has required that she go to [place]. Because she is not sure how long she will be there, we will have the patient's medications released for a week early. Hopefully, her daughter undergo surgery and does well. She will follow up in the future as needed. She will call us if she has any concerns. We would like to thank you for letting us participate in her care. We hope she continues to improve. <ELECTRONICALLY SIGNED> By: Yoli Wills MD 01/23/18 1641 1602 2008N. José Manuel Wills MD /nt
== END ==
LOC: M.PC 05:00
DX: M54.12 Radiculopathy, cervical region (principal); M70.62 Trochanteric bursitis, left hip; M70.61 Trochanteric bursitis, right hip; I10 Essential (primary) hypertension; J45.909 Unspecified asthma, uncomplicated; K21.9 Gastro-esophageal reflux disease without esophagitis; G43.909 Migraine, unspecified, not intractable, without status migrainosus; M53.3 Sacrococcygeal disorders, not elsewhere classified; K58.9 Irritable bowel syndrome, unspecified; F32.9 Major depressive disorder, single episode, unspecified; F41.9 Anxiety disorder, unspecified

== ENCOUNTER → 2018-02-07 | Outpatient (CLI) | payer BC ==
--- NOTE | 2018-03-11 10:30 | PAINCON ---
[address] [address] PAIN MANAGEMENT CONSULTATION Name: NINO ARREDONDO Room: [facility] JUAN Burkett.#: [id number] Admission: 02/07/18 Attend Phys: Yoli Wills MD Discharge: Date of : 61 Report #: [id number] THIS REPORT FOR: //name// CC: Yoli Nix DATE OF SERVICE: 02/07/2018 CHIEF COMPLAINT: "I am having pain in my left hip, it feels like it is moving in and out." HISTORY OF PRESENT ILLNESS: The patient is a 52-year-old female who has been followed in the pain clinic because of cervical radiculopathy. As you recall, she had fusion of the cervical area in 02/2017. She continues to have pain and discomfort with pain radiating down into her neck involving her left arm. She finds that the [place] medications are helpful. Continues to take medications to help decrease this. Feels that the Lyrica is somewhat helpful. Rates her pain as an 8/10 today. She is working with her daughter. Her daughter recently had a major surgery. She had [place]ura rods placed from her upper back down to the lower portion of her back. Had a significant scoliosis with 90 degree curvature. 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 This has exacerbated her pain as well. She feels more stressed because of this. Stress has been problematic. ALLERGIES: No known drug allergies. CURRENT MEDICATIONS: Wellbutrin 300 mg, Flexeril 10 mg 1 p.o. t.i.d., hydrocodone 10/325 one p.o. t.i.d., lisinopril 10 mg, meloxicam 15 mg, metoprolol 100 mg, Zofran 50 mg, Imitrex 50 mg, Lyrica 75 mg b.i.d. PAIN CLINIC ASSESSMENT: 1. The patient is not being treated for rheumatoid arthritis, but does have some arthritic change in her neck. 2. Height 5 feet 2 inches, weight 193 pounds, BMI is 35. 3. Fall risk. The patient has not fallen in the last 3 months. 4. Blood thinner. The patient is not on a blood thinning medication. 5. Hypertension. The patient is being treated for hypertension. Does have some elevated blood pressures today. 6. Vital signs: Blood pressure 147/117, heart rate 84, respiratory rate 16, room air saturation 92%, temperature 98.7, pain score 8/10. 7. Risk assessment tool. 8. Functional assessment tool. 9. Recreational drug use. The patient denies use of recreational drugs. 10. Tobacco: The patient denies use of tobacco. 11. Alcohol: The patient [place] [address] PAIN MANAGEMENT CONSULTATION Name: NINO ARREDONDO Room: [facility]#: [id number] Admission: 02/07/18 Attend Phys: Yoli Wills MD Discharge: Date of : 61 Report #: [id number] PHYSICAL EXAMINATION: GENERAL: The patient is well-developed, well-nourished female. She appears her stated age. She is alert and oriented x3. Her speech is fluent. HEAD, EYES, EARS, NOSE, AND THROAT: Normocephalic, atraumatic. Extraocular eye muscles intact. Sclerae nonicteric. Hearing is within normal limits. Mucous membranes are moist. NECK: Without adenopathy. The patient has some limited motion secondary to surgery and decreased flexion and extension. The patient has some pain and discomfort in the lower portion of her back. MUSCULOSKELETAL: Without significant scoliosis, kyphosis or lordosis. Does have some pain and discomfort in her left hip. Internal and external rotation as well as standing and walking from side to side. The patient has some perception of some movement in her left hip. IMPRESSION: 1. Cervical radiculopathy, status post cervical fusion with this surgery in 2009. 2. Pain in the left hip with perception of some movement. 3. Well-healed scar in the anterior portion of her neck. 4. Left greater than right greater trochanter bursitis history. 5. History of sacroiliac joint dysfunction. 6. Depression. 7. Hypertension. 8. Anxiety. 9. Gastroesophageal reflux. 10. Irritable bowel syndrome. RECOMMENDATIONS: We discussed treatment options with the patient. At this juncture, she does have an elevated blood pressure. She will follow up with her primary physician in regard to change as needed to normalized her blood pressure. She also will get an x-ray of her left hip. Does have the perception of pain and discomfort in her hip. Does have a history of bursitis. We will continue with her current medical regimen. A script for her medications has been dispensed. She will continue with hydrocodone 10 one p.o. b.i.d. Also, the patient will continue with Lyrica 75 mg 1 tablet b.i.d., meloxicam script has been rewritten. She will call us if she has any concerns. We would like to thank you for letting us to participate in her care. We hope she continues to improve. <ELECTRONICALLY SIGNED> By: Yoli Wills MD 03/11/18 1030 1029 [id number]. José Manuel Wills MD /FERNANDO
== END ==
LOC: M.PC 04:01
DX: M54.12 Radiculopathy, cervical region (principal); M25.552 Pain in left hip; I10 Essential (primary) hypertension; F32.9 Major depressive disorder, single episode, unspecified; F41.9 Anxiety disorder, unspecified; K21.9 Gastro-esophageal reflux disease without esophagitis; K58.9 Irritable bowel syndrome, unspecified; M53.3 Sacrococcygeal disorders, not elsewhere classified; M70.62 Trochanteric bursitis, left hip; M70.61 Trochanteric bursitis, right hip; Y93.89 Activity, other specified; Z79.899 Other long term (current) drug therapy

== ENCOUNTER → 2018-02-08 | Outpatient (CLI) | payer BC | LOC: M.RAD 16:26 | DX: M25.552 Pain in left hip (principal); R29.4 Clicking hip; I10 Essential (primary) hypertension; K21.9 Gastro-esophageal reflux disease without esophagitis ==

== ENCOUNTER → 2018-03-21 | Outpatient (CLI) | payer BC ==
--- NOTE | 2018-04-10 16:20 | PAINCON ---
[address] [address] PAIN MANAGEMENT CONSULTATION Name: NINO ARREDONDO Room: [facility] JUAN Burkett.#: [id number] Admission: 03/21/18 Attend Phys: Yoli Wills MD Discharge: Date of : 61 Report #: [id number] THIS REPORT FOR: //name// CC: Yoli Nix DATE OF SERVICE: 03/21/2018 CHIEF COMPLAINT: Neck pain. HISTORY: The patient is a 52-year-old female who has been followed in the pain clinic because of cervical radiculopathy. As you recall, she had cervical radicular pain. She underwent surgery. Continues to have pain and discomfort in spite of her surgery about one year ago. She had a fusion. She continues to have pain and discomfort in the left arm with numbness, weakness and tenderness. She feels that her medications of hydrocodone, meloxicam and Lyrica are helpful. She feels that the Lyrica at 150 mg is helpful, but not as much as she would like. She would like to increase the Lyrica and see whether or not she could glean more pain control. She also has pain in her left hip, states that she did fall from a ladder and landed upon her left hip. She has had pain and discomfort since that time. She underwent an injection with steroids in the left hip. Note some improvement, but it continues to be problematic. She has the sensation of a popping in the left hip. This is with activity. She is not having pain that radiates into the groin area. She states that she had an x-ray of the hip and this did not show any problems with her hip joint. Rates her pain as a 7/10 at this juncture. She is happy that her daughter is doing well. As you recall, her daughter had significant scoliosis. She underwent her third surgery in [place] a few weeks ago. She is doing well. She has returned to work at this juncture. Overall, things are going well and she continues to have healed up/convalesced nicely. ALLERGIES: No known drug allergies. MEDICATIONS: Wellbutrin 300 mg, Flexeril 10 mg 1 p.o. t.i.d., hydrocodone 10/325 one p.o. t.i.d., lisinopril 10 mg, Meloxicam 15 mg, metoprolol 100 mg, Zofran 50 mg, Imitrex 50 mg, and Lyrica 75 mg b.i.d. PAIN CLINIC ASSESSMENT/PQRS: 1. The patient is not being treated for osteoarthritis or rheumatoid arthritis. 2. Height 5 feet 2 inches, weight 198 pounds, BMI is 36.5. 3. Vital signs: Blood pressure 134/93, heart rate 65, respiratory rate 16, room air saturation is 93%. Temperature 98.4. 4. Pain intensity is 7/10. 5. Fall risk. The patient has not fallen since we saw her last. 6. Blood thinner. The patient is not on a blood [place] [address] PAIN MANAGEMENT CONSULTATION Name: NINO ARREDONDO [id number] Admission: 03/21/18 Attend Phys: Yoli Wills MD Discharge: Date of : 61 Report #: [id number] 7. Hypertension. The patient is being treated for hypertension. 8. Opioids. The patient receives her medications from one source, the pain clinic. 9. Risk assessment tool, low for opioid use. 10. Functional assessment tool. 11. Recreational drug use: The patient denies. 12. Tobacco: The patient denies use of tobacco. 13. Alcohol: The patient denies use of alcoholic beverages. PHYSICAL EXAMINATION: GENERAL: The patient is a well-developed, well-nourished female. She appears her stated age. She is alert and oriented x 3. Her affect is appropriate. Speech is fluent. HEENT: Normocephalic, atraumatic. Extraocular eye muscles intact. Sclerae nonicteric. Mucous membranes are moist. Hearing is within normal limits. NECK: Without adenopathy or JVD. Some decreased movement in her neck secondary to surgery with decreased flexion and extension. The patient has some pain and discomfort, which continues to be problematic radiating down into her lower back. MUSCULOSKELETAL: Without significant scoliosis, kyphosis or lordosis. The patient has some pain and discomfort in the left hip. Has tenderness in the left trochanteric bursa. She continues to have some perception of movement and popping in her hip. IMPRESSION: 1. Cervical radiculopathy approximately one year ago with fusion. 2. Pain in the left hip with perception some movement. 3. Well-healed scar in the anterior portion of her neck. 4. Left greater than right trochanteric bursitis, history. 5. History of sacroiliac bulge sacroiliac joint dysfunction. 6. Depression. 7. Hypertension. 8. Anxiety. 9. Gastroesophageal reflux. 10. Irritable bowel syndrome. RECOMMENDATIONS: We discussed treatment options with the patient. At this juncture, she will continue with her current medications. We have rewritten a script for Mobic. She will also continue with her muscle relaxant, Flexeril. We will increase the patient's Lyrica from 75 mg b.i.d., total of 150 mg daily to 100 mg b.i.d., total of 200 mg daily. She will [facility] call us if she has any problems with [place] [address] PAIN MANAGEMENT CONSULTATION Name: NINO ARREDONDO Room: [facility].#: [id number] Admission: 03/21/18 Attend Phys: Yoli Wills MD Discharge: Date of : 61 Report #: [id number] We would like to thank you for letting us participate in her care. We hope she continues to improve. <ELECTRONICALLY SIGNED> By: Yoli Wlils MD 04/10/18 1620 1331 1558N. José Manuel Wills MD /nt
== END ==
LOC: M.PC 04:45
DX: M54.12 Radiculopathy, cervical region (principal); M25.552 Pain in left hip; F32.9 Major depressive disorder, single episode, unspecified; I10 Essential (primary) hypertension; K21.9 Gastro-esophageal reflux disease without esophagitis; F41.9 Anxiety disorder, unspecified; K58.9 Irritable bowel syndrome, unspecified; Z87.39 Personal history of other diseases of the musculoskeletal system and connective tissue

== ENCOUNTER → 2018-04-16 | Outpatient (CLI) | payer BC ==
--- NOTE | ~2018-04-16 | PAINCON ---
[address] [address] PAIN MANAGEMENT CONSULTATION Name: NINO ARREDONDO Room: [facility] JUAN Burkett.#: [id number] Admission: 04/16/18 Attend Phys: Yoli Wills MD Discharge: Date of : 61 Report #: [id number] THIS REPORT FOR: //name// CC: Yoli Nix DATE OF SERVICE: 04/16/2018 HISTORY: Neck pain despite surgery. FOLLOWUP HISTORY: The patient is a 52-year-old female who has been followed in the pain clinic because of cervical radiculopathy. As you recall, she has undergone cervical fusion. This was in 2017. She continues to have pain and discomfort in spite of the surgery, which is about a year ago. She notes discomfort in her left arm with numbness, tingling, and weakness. She feels that the medications, hydrocodone, meloxicam and Lyrica continue to be helpful. She would like to continue her current medical regimen. She is having no complication from them. Also, has some pain in her left hip. She states that she fell off ladder and landed on her left hip. Hopefully, this will continue to improve. She did undergo an injection in the hip in the past. Continues to have some sensation of popping in the hip with activity. X-ray of her hip did not show significant problems. Rates her pain today as 7/10. ALLERGIES: No known drug allergies. MEDICATIONS: Wellbutrin 300 mg, Flexeril 10 mg 1 p.o. t.i.d., hydrocodone 10/325 one p.o. t.i.d., lisinopril 10 mg, meloxicam 15 mg, metoprolol 100 mg, Zofran 50 mg, Imitrex 50 mg, Lyrica 100 mg b.i.d. PAIN CLINIC ASSESSMENT/PQRS: 1. The patient has not been treated for osteoarthritis or rheumatoid arthritis. 2. Height 5 feet 2 inches, weight 195 pounds, BMI is 36.0. 3. Vital signs: Blood pressure 130/92, heart rate 76, respiratory rate 16, room air saturation is 96%, temperature 98.3. FOLLOWUP HISTORY: 1. Pain score is 7/10. 2. Fall history: The patient did fall from ladder and still has some discomfort as a result of that fall. 3. Blood thinner. The patient is not on a blood thinning medication. 4. Hypertension. The patient has been treated for hypertension. 5. Opioids. The patient receives her medication from one source, the pain clinic. 6. Risk assessment tool, low for opioid use. 7. Functional assessment tool. 8. Recreational drug use: [place] [address] PAIN MANAGEMENT CONSULTATION Name: NINO ARREDONDO Room: [facility]#: [id number] Admission: 04/16/18 Attend Phys: Yoli Wills MD Discharge: Date of : 61 Report #: [id number] 9. Tobacco: The patient denies use of tobacco. 10. Alcohol: The patient denies use of alcoholic beverages. PHYSICAL EXAMINATION: GENERAL: The patient is a well-developed, well-nourished female. She appears her stated age. She is alert and oriented x 3. Her affect is appropriate. Speech is fluent. HEENT: Normocephalic, atraumatic. Extraocular eye muscles intact. Sclerae nonicteric. Mucous membranes are moist. Hearing is within normal limits. NECK: Without adenopathy or JVD. Some decreased motion in her neck secondary to his history of surgery and fusion with decreased flexion and extension. The patient has some pain and discomfort, radiates down into her neck and low back area. Does complain of some pain and discomfort in the left hip area. MUSCULOSKELETAL: Without significant scoliosis, kyphosis or lordosis. The patient has some tenderness in the left trochanteric bursa area. IMPRESSION: 1. Cervical radiculopathy approximately one year ago with fusion. 2. Pain in the left hip with perception of some movement in this area. 3. Well-healed scar in the anterior portion of her neck. 4. Left greater than right trochanteric bursitis history. 5. History of sacroiliac bulge with sacroiliac joint dysfunction. 6. Depression. 7. Hypertension. 8. Anxiety. 9. Gastroesophageal reflux. 10. Irritable bowel syndrome. RECOMMENDATIONS: 1. We discussed treatment options with the patient. At this juncture, we will continue with her current medications. She feels that the Methyl Meloxicam is helpful, not having any significant problem at this point. She will stop taking the medication should she noted a worsening or irritation of her GI tract. 2. The patient will continue with Lyrica 100 mg b.i.d. She will also continue with hydrocodone 10/325 one p.o. q.i.d. as needed 101 tablets have been for divided. The patient will call us if she has any problems. We would like to thank you for letting us participate in her care. We hope she continues to improve. By: [id number]. José Manuel Wills MD /nt
== END ==
LOC: M.PC 04:54
DX: M54.12 Radiculopathy, cervical region (principal); I10 Essential (primary) hypertension; F32.9 Major depressive disorder, single episode, unspecified; K21.9 Gastro-esophageal reflux disease without esophagitis; K58.9 Irritable bowel syndrome, unspecified; F41.9 Anxiety disorder, unspecified; M53.3 Sacrococcygeal disorders, not elsewhere classified; M46.1 Sacroiliitis, not elsewhere classified

== ENCOUNTER → 2018-05-14 | Outpatient (CLI) | payer BC ==
[~2018-05-14] MED LIST changes: +ABILIFY10 MG PO; +AMBIEN 5 MG TABL5 M1 PO; +LIPITOR 20 MG T20 M1 PO
--- NOTE | ~2018-05-14 | PAINCON ---
[address] [address] PAIN MANAGEMENT CONSULTATION Name: NINO ARREDONDO Room: [facility] JUAN Burektt.#: [id number] Admission: 05/14/18 Attend Phys: Yoli Wills MD Discharge: Date of : 61 Report #: [id number] THIS REPORT FOR: //name// CC: Yoli Nix DO DATE OF SERVICE: 05/14/2018 CHIEF COMPLAINT: Here for medication. HISTORY OF PRESENT ILLNESS: The patient is a 52-year-old female who has been followed in the Pain Clinic because of cervical radiculopathy. As you may recall, she has undergone cervical fusion, this was back in about February 2017. She continues to have pain and discomfort in the area of her left arm despite the surgery. She has numbness, tingling, and weakness. She feels that medications of hydrocodone and Meloxicam are helpful. Also, feels that Lyrica has been beneficial. Still finds that her medications do not provide her with as much relief as she would like, but feels it is helpful. She also has some pain and discomfort in the left hip. States that she did fall off a ladder and injured her hip. She continues to note that that is improving. Notes some popping sensation in that hip. X-ray did not show any significant problems. She has returned to the Pain Clinic for renewal of her medications. ALLERGIES: No known drug allergies. CURRENT MEDICATIONS: Wellbutrin 300 mg, Flexeril 10 mg 1 p.o. t.i.d., hydrocodone 10/325 one p.o. t.i.d., lisinopril 10 mg, Meloxicam 15 mg, metoprolol 100 mg, Zofran 50 mg, Imitrex 50 mg, and Lyrica 100 mg b.i.d. PAIN CLINIC ASSESSMENT AND PQRS: 1. The patient is not being treated for rheumatoid arthritis or osteoarthritis. 2. Height 5 feet 2 inches, weight 207 pounds, BMI is 38.0. 3. Vital signs: Blood pressure 135/79, heart rate 65, respiratory rate 16, room air saturation 97%, temperature 98.1. 4. Pain intensity: 6/10. 5. Fall risk: The patient has not fallen in the last 3 months. 6. Fall history: The patient did fall from a ladder and notes some discomfort. 7. Blood thinner: The patient is not on a blood thinning medication. 8. Hypertension: The patient is being treated for hypertension. 9. Opioid: The patient receives her medication from one source from the Pain Clinic. 10. Risk assessment tool: Low for opioid use. 11. Functional assessment tool. 12. Recreational drug use: The patient denies use of recreational drugs. 13. Tobacco: The patient denies [place] [address] PAIN MANAGEMENT CONSULTATION Name: NINO ARREDONDO Room: [facility]#: [id number] Admission: 05/14/18 Attend Phys: Yoli Wills MD Discharge: Date of : 61 Report #: [id number] 14. Alcohol: The patient denies use of alcoholic beverages. PHYSICAL EXAMINATION: GENERAL: The patient is a well-developed, well-nourished, female. Appears her stated age. She is alert and oriented x 3. Her affect is appropriate. Speech is fluent. HEENT: Normocephalic, atraumatic. Extraocular eye muscles intact. Sclerae nonicteric. Mucous membranes are moist. Hearing is within normal limits. NECK: Without adenopathy or JVD. The patient has some decreased motion in her neck secondary to history of cervical fusion and some decreased flexion and extension. The patient has pain and discomfort that continues to radiate down into her left arm. Also, has some pain in her left hip area. MUSCULOSKELETAL: Without scoliosis, kyphosis or lordosis. The patient has some tenderness in the left trochanteric area near the bursa. IMPRESSION: 1. Cervical radiculopathy approximately 1 year post-fusion 2. Pain of the left hip with perception of some movement in this area. 3. Well-healed scar in the anterior portion of the neck. 4. Left greater than right trochanteric bursitis history. 5. History of sacroiliac dysfunction. 6. Depression. 7. Hypertension. 8. Anxiety. 9. Gastroesophageal reflux. 10. Irritable bowel syndrome. RECOMMENDATIONS: We discussed treatment options with the patient. At this juncture, she has been with the Pain Clinic for about 1 year. She has taken her medications as prescribed. She does not have any problems with that. At this juncture, we will write for 2 months of medication. Hopefully, she will continue to improve as time goes on. A script for Lyrica 100 mg and hydrocodone 10/325 has been written, 2 months of medication have been allocated with Meloxicam 15 mg 1 p.o. daily. We would like to thank you for letting us participate in her care. We hope she continues to improve. By: [id number]. José Manuel Wills MD /nt
== END ==
LOC: M.PC 04:44
DX: M54.12 Radiculopathy, cervical region (principal); M70.62 Trochanteric bursitis, left hip; M70.61 Trochanteric bursitis, right hip; M53.3 Sacrococcygeal disorders, not elsewhere classified; M25.552 Pain in left hip; F32.9 Major depressive disorder, single episode, unspecified; I10 Essential (primary) hypertension; F41.9 Anxiety disorder, unspecified; K21.9 Gastro-esophageal reflux disease without esophagitis; K58.9 Irritable bowel syndrome, unspecified; Y93.89 Activity, other specified; Z79.899 Other long term (current) drug therapy

== ENCOUNTER 2018-05-16 11:36 | Inpatient (IN) | payer BC ==
[~2018-05-16] VITALS: Ht 157.5 cm; Wt 95.7 kg
[~2018-05-16 11:36] MED LIST changes: -AMBIEN 5 MG TABL5 M1 PO; -LIPITOR 20 MG T20 M1 PO
[2018-05-16 11:44] VITALS: BP 93/55
[2018-05-16 12:31] LABS: URINE BLOOD NEGATIVE (Negative); URINE CLARITY CLEAR; URINE COLOR YELLOW; URINE GLUCOSE-RANDOM NEGATIVE (Negative); URINE KETONES NEGATIVE (Negative); URINE LEUKOCYTES-REFLEX NEGATIVE (Negative); URINE NITRITE-REFLEX NEGATIVE (Negative); URINE PROTEIN NEGATIVE (Negative); URINE SPECIFIC GRAVITY >= 1.030 (1.005-1.030); URINE UROBILINOGEN 0.2 E.U./dl (0.2-1.0)
[2018-05-16 12:33] LABS: ICTOTEST (BILI CONFIRMATORY) Negative (Negative); URINE BILIRUBIN 1+ (Negative)
[2018-05-16 12:34] LABS: ABSOLUTE BASOPHILS 0.1 thou/uL (0.0-0.2); ABSOLUTE EOSINOPHILS 0.6 thou/uL (0.0-0.7); ABSOLUTE LYMPHOCYTES 3.3 thou/uL (0.8-5.3); ABSOLUTE MONOCYTES 0.7 thou/uL (0.0-1.2); ABSOLUTE NEUTROPHILS 2.9 thou/uL (1.6-8.1); EOSINOPHILS 7.9 %; HEMATOCRIT 37.6 % (37.0-47.0); HEMOGLOBIN 12.7 gm/dL (12.0-15.0); LYMPHOCYTES 43.2 %; MCHC 33.7 g/dL (28.0-37.0); MCV 92.1 fL (80.0-100.0); MONOCYTES 8.7 %; MPV 7.5 fl. (7.2-11.1); NUCLEATED RBCS 0 /100WBC; PLATELET COUNT* 245 thou/uL (150-400); POLYS 39.2 %; RBC 4.08 mil/uL (4.20-5.00); RDW-CV 13.3 % (10.5-14.5); WBC 7.5 thou/uL (4.0-11.0)
[2018-05-16 12:38] LABS: AMP/METHAMP POSITIVE (Negative); BARBITURATES Negative (Negative); BENZODIAZEPINES Negative (Negative); COCAINE Negative (Negative); METHADONE Negative (Negative); OPIATES POSITIVE (Negative); PCP Negative (Negative); THC Negative (Negative)
[2018-05-16 12:43] LABS: ANION GAP 11 mmol/L (7-16); BUN 21 mg/dL (7-18); CALCIUM 8.3 mg/dL (8.5-10.1); CHLORIDE 104 mmol/L (98-107); CO2 27 mmol/L (21-32); CREATININE 1.2 mg/dL (0.6-1.3); GLUCOSE 106 mg/dL (70-99); POTASSIUM 3.7 mmol/L (3.5-5.1); SODIUM 142 mmol/L (136-145)
[2018-05-16 12:46] LABS: APTT 25.3 Seconds (25.0-31.3); INR 0.9; PROTIME 9.7 Seconds (9.20-11.50)
[2018-05-16 12:53] LABS: ALBUMIN 3.4 g/dL (3.4-5.0); ALKALINE PHOSPHATASE 136 U/L (46-116); NT-PRO BRAIN NAT PEPTIDE 56 pg/mL (<300); SGOT 27 U/L (15-37); SGPT 36 U/L (30-65); TOTAL BILIRUBIN 0.2 mg/dL (<0.1-1.0); TOTAL PROTEIN 7.8 g/dL (6.4-8.2); TROPONIN-I LEVEL <0.06 ng/mL (<0.06)
[2018-05-16 14:21] LABS: AMP/METHAMP POSITIVE (Negative); BARBITURATES Negative (Negative); BENZODIAZEPINES Negative (Negative); COCAINE Negative (Negative); METHADONE Negative (Negative); OPIATES POSITIVE (Negative); PCP Negative (Negative); THC Negative (Negative)
[2018-05-16 14:47] VITALS: BP 95/47
[2018-05-16] MEDS ORDERED: AMBIEN 5 MG TABL5 M1 PO (15:32)
[2018-05-16 20:00] VITALS: BP 100/70
[2018-05-17] VITALS: BP 110/56
[2018-05-17 04:50] VITALS: BP 111/68
[2018-05-17 06:14] LABS: ABSOLUTE EOSINOPHILS 0.4 thou/uL (0.0-0.7); ABSOLUTE LYMPHOCYTES 1.9 thou/uL (0.8-5.3); ABSOLUTE MONOCYTES 0.4 thou/uL (0.0-1.2); BASOPHILS 0.8 %; EOSINOPHILS 7.8 %; HEMATOCRIT 34.3 % (37.0-47.0); HEMOGLOBIN 11.6 gm/dL (12.0-15.0); LYMPHOCYTES 40.6 %; MCHC 33.8 g/dL (28.0-37.0); MCV 91.5 fL (80.0-100.0); MONOCYTES 9.4 %; MPV 6.8 fl. (7.2-11.1); NUCLEATED RBCS 0 /100WBC; PLATELET COUNT* 175 thou/uL (150-400); POLYS 41.4 %; RBC 3.75 mil/uL (4.20-5.00); RDW-CV 12.9 % (10.5-14.5); WBC 4.7 thou/uL (4.0-11.0)
[2018-05-17 07:30] LABS: ANION GAP 9 mmol/L (7-16); BUN 14 mg/dL (7-18); CALCIUM 8.2 mg/dL (8.5-10.1); CHLORIDE 104 mmol/L (98-107); CHOLESTEROL 203 mg/dL (<200); CO2 29 mmol/L (21-32); CREATININE 0.9 mg/dL (0.6-1.3); GLUCOSE 102 mg/dL (70-99); HDL CHOLESTEROL 51 mg/dL (>40); LDL CHOLESTEROL 121 mg/dL (<100); SODIUM 142 mmol/L (136-145); TRIGLYCERIDE 155 mg/dL (<150); VLDL 31 mg/dL (<40)
[2018-05-17 07:33] LABS: SERUM ASSESSMENT Clear
[2018-05-17 08:02] VITALS: BP 117/72
[2018-05-17 12:00] VITALS: BP 113/74
[2018-05-17] MEDS ORDERED: LIPITOR 20 MG T20 M1 PO (13:16)
[2018-05-17 13:27] VITALS: BP 113/74
--- NOTE | 2018-05-17 14:51 | EKG ---
[place] [address] ELECTROCARDIOGRAM REPORT Name: NINO ARREDONDO Room: [address] M.R.#: [id number] Admission: 05/16/18 Attend Phys: Bruce Delgado MD Discharge: 05/17/18 Date of : 61 Report #: [id number] THIS REPORT FOR: //name// [facility] ED Test Date: 2018-05-16 Test Time: 11:57:44 Pat Name: NINO ARREDONDO Department: Room: [facility] Gender: F Interactive Digital Media Specialist: : [id number] Requested By: Cameron Mota Order Number: [id number] MD: García Acuña Measurements Intervals [place] Rate: 68 P: 22 CT: 173 QRS: 1 QRSD: 92 T: 12 QT: 398 QTc: 424 Interpretive Statements Sinus rhythm Low voltage, precordial leads Abnormal R-wave progression, early transition Left ventricular hypertrophy No previous ECG available for comparison Electronically Signed On 05-17-2018 14:51:42 FORMULATION SCIENTIST by García Acuña [email or web address] <ELECTRONICALLY SIGNED> By: García Acuña MD, [facility] 05/17/18 1451 1157 1157 García Acuña MD, FAC /EPI
[2018-05-17 19:07] LABS: GLYCOHEMOGLOBIN (HGB A1C) 5.3 % (4.8-5.6)
--- NOTE | 2018-05-18 14:20 | CON ---
[address] [address] CONSULTATION Name: NINO ARREDONDO Room: [address] M.R.#: [id number] Admission: 05/16/18 Attend Phys: Bruce Delgado MD Discharge: 05/17/18 Date of : 61 Report #: [id number] THIS REPORT FOR: //name// CC: Bruce Nix HISTORY OF PRESENT ILLNESS: The patient is a 52-year-old woman who was admitted from the Emergency Room when it was noted that she had left facial droop by her primary care. She reports that she has noted some intermittent slurred speech over the last 3-4 weeks and that she has had some difficulty with balance. She would tend to go to the right side, and she had fallen several times without loss of consciousness and was able to get up by herself. The patient has had a cervical fusion for disk disease in the past, but has a persisting left-sided numbness in the arm. She has a history of depression and has been on bupropion for years, but recently Abilify was started, but that has subsequently been stopped. The patient reports that she was noted to have gained 12 pounds over the last several weeks. She had seen her primary care doctor, Dr. Nix, for the injection of the hip for left hip bursitis, which was her second shot. Other symptoms that she has noticed in retrospect, over the last few weeks, she has intermittent slurred speech, intermittent double vision or blurred vision. She has a history of migraine headaches, but she has not had any significant change in the severity or frequency. She has noted on one occasion when she squatted down, she had a lot of pain in her back when she was getting up. She denies any previous history of Long palsy and was not aware of her facial asymmetry. The patient does take Ambien 10 mg nightly, in addition to, sertraline, bupropion, lisinopril, metoprolol and zolpidem 10 mg. She has stopped the Abilify. She does not take supplemental vitamins. The patient is not employed. 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 She lives with her daughter and her daughter's children. She has been from her . She has no known allergies. She is a never smoker. There is a history of ADHD in her grandchildren who lives in the house that she is in, and she suspects that she may have inadvertently taken one of their ADHD pills, which accounts for her positive amphetamine test on urine, although she is not sure if she is just speculating that that may be the reason. She denies using amphetamine. REVIEW OF SYSTEMS: The patient reports weight gain. Denies fevers, chills, rashes or lymphadenopathy. She states that she has had some intermittent trouble swallowing over the last several months. She also reports dry eyes and dry mouth. Review of systems otherwise unremarkable with the exception of chronic pain, particularly in her hip and also in her low back and persisting numbness in the left [place] [address] CONSULTATION Name: NINO ARREDONDO Room: [address] IN M.R.#: [id number] Admission: 05/16/18 Attend Phys: Bruce Delgado MD Discharge: 12/21/18 Date of : 61 Report #: [id number] PHYSICAL EXAMINATION: VITAL SIGNS: Blood pressure 117/72, pulse 75, temperature 36.4. GENERAL APPEARANCE: The patient is overweight. She is pleasant and cooperative, who appears her stated age. NECK: There is mild limitation of movement of the neck laterally. The paraspinal muscles are tight. NEUROLOGIC: She is alert and oriented with normal memory and speech. On cranial nerve testing, the pupils were small, but equally round and reactive. Extraocular movements were full without nystagmus. Visual restrepo were full to confrontation. There was no ptosis noted. She had full power of eye opening and eye closure, there was an asymmetry of the mouth with a shallow left nasolabial fold and failure of complete excursion of the left side of the face to a mild degree. Hearing was intact bilaterally. Tongue was normal. Motor testing reveals full power in arms and legs. There was no pronator drift. No abnormal movements were noted. Sensation testing was intact to vibration and pin, with the exception of the left hand, which had mild decreased appreciation to pin, particularly in the median nerve distribution. Reflexes were 1+ and equal from side to side. Coordination testing revealed good dzzhjp-aa-qjwi, psuk-el-touy and rapid alternating movements. Gait was mildly antalgic secondary to left hip pain. LABORATORY DATA: Showed a hemoglobin of 11.6, hematocrit 34.3, otherwise normal. Blood chemistries were normal. Calcium 8.2. The albumin was 3.4. Urine positive for opiates. She does take [place] for pain, but was also positive for amphetamine. IMAGING: The chest x-ray was normal. Head MRI without contrast was essentially normal. Head CT and CTA were also normal. IMPRESSION: The patient has no evidence of stroke. She has intermittent symptoms including slurred speech, double vision, difficulty swallowing, dry eyes, dry mouth. She has an asymmetrical lower face. There is a history of myasthenia gravis in a grandchild. The intermittent nature of the symptoms might reflect a very unusual presentation of myasthenia gravis. There is no evidence of ptosis at this time. She has dry eyes and dry mouth and consideration of Sjogren syndrome is also raised, although this would be an atypical presentation as well. There was amphetamine in her urine, the significance of which is not known. I will go ahead and order a serology for myasthenia gravis, which will take some time to come back as well as check for Sjogren syndrome. <ELECTRONICALLY SIGNED> By: Erasmo Hogan MD 05/18/18 1420 1135 [id number] Hogan MD /nt
[2018-05-20 13:06] LABS: ANTI-SSA <0.2 AI (0.0-0.9)
== END 2018-05-17 14:15 | disposition home or self-care (01) | DRG 92 ==
LOC: M.ERS 11:36 → M.TBA-ER 13:50 → M.2W 13:50
PROVIDERS: Emergency Medicine Emergency Medical Services; ADMIT Family Medicine
DX: R29.810 Facial weakness (principal); N17.9 Acute kidney failure, unspecified; G89.29 Other chronic pain; M54.9 Dorsalgia, unspecified; G47.00 Insomnia, unspecified; F41.9 Anxiety disorder, unspecified; F32.9 Major depressive disorder, single episode, unspecified; Z66 Do not resuscitate; G70.00 Myasthenia gravis without (acute) exacerbation; N18.3 Chronic kidney disease, stage 3 (moderate); M54.2 Cervicalgia; I12.9 Hypertensive chronic kidney disease with stage 1 through stage 4 chronic kidney disease, or unspecified chronic kidney disease; M35.00 Sjogren syndrome, unspecified; G43.909 Migraine, unspecified, not intractable, without status migrainosus; M43.22 Fusion of spine, cervical region; E78.5 Hyperlipidemia, unspecified; Z81.8 Family history of other mental and behavioral disorders; Z79.899 Other long term (current) drug therapy; Z86.73 Personal history of transient ischemic attack (TIA), and cerebral infarction without residual deficits

== ENCOUNTER → 2018-07-09 | Outpatient (CLI) | payer BC ==
[~2018-07-09] MED LIST changes: +AMBIEN 5 MG TABL5 M1 PO; +LIPITOR 20 MG T20 M1 PO
--- NOTE | ~2018-07-09 | PAINCON ---
[address] [address] PAIN MANAGEMENT CONSULTATION Name: NINO ARREDONDO Room: [facility] JUAN Patiño#: [id number] Admission: 07/09/18 Attend Phys: Yoli Wills MD Discharge: Date of : 61 Report #: [id number] THIS REPORT FOR: //name// CC: Yoli Nix DO DATE OF SERVICE: 07/10/2018 CHIEF COMPLAINT: Here for medication renewal. HISTORY OF PRESENT ILLNESS: The patient is a 53-year-old female who has been followed in the Pain Clinic because of cervical radiculopathy, which persists in spite of a cervical fusion in February. She continues to have pain that radiates down into her left arm. She has numbness, tingling, and weakness. She feels that medications of hydrocodone and Meloxicam are helpful. She feels that Lyrica is beneficial as well. She has some discomfort in her left hip. She did fall off of a ladder and injured her left hip. She has pain and discomfort in the left hip and low back today. She was hoping for an injection in the left hip. She was seen in the Emergency Room. She was found to be slurring her words. She was watched overnight. There was no definitive findings. She states that it feels like a horse has kicked her in the left hip area. ALLERGIES: No known drug allergies. CURRENT MEDICATIONS: Wellbutrin 300 mg, Flexeril 10 mg t.i.d., hydrocodone 10/325 one p.o. t.i.d., lisinopril 10 mg, meloxicam 50 mg, metoprolol 100 mg, Zofran 50 mg, Imitrex 50 mg, Lyrica 100 mg b.i.d. PAIN CLINIC ASSESSMENT AND PQRS: 1. The patient is not being treated for rheumatoid arthritis or osteoarthritis. 2. Height 5 feet 2 inches, weight 206 pounds, BMI is 38.2. 3. Vital signs: Blood pressure 127/64, heart rate 79, respiratory rate 16, room air saturation 97%, temperature 98.3. 4. Pain intensity: 7/10. 5. Fall risk: The patient has not fallen since she fell off the ladder. 6. Blood thinner: The patient is not on a blood thinning medication. 7. Hypertension: The patient is not being treated for hypertension. 8. Opioids greater than 6 weeks: The patient receives her medications from [facility] from [facility]. 9. Risk assessment tool: Low for opioid use. 10. Functional assessment tool. 11. Recreational drug use: The patient denies use of recreational drugs. 12. Tobacco: The patient denies use of tobacco. 13. Alcohol: The patient [place] [address] PAIN MANAGEMENT CONSULTATION Name: NINO ARREDONDO Room: [facility]#: [id number] Admission: 07/09/18 Attend Phys: Yoli Wills MD Discharge: Date of : 61 Report #: [id number] PHYSICAL EXAMINATION: GENERAL: The patient is a well-developed, well-nourished, female. She appears her stated age. She is alert and oriented x 3. Her affect is appropriate. Speech is fluent. HEENT: Normocephalic, atraumatic. Extraocular eye muscles are intact. Sclerae nonicteric. Mucous membranes are moist. NECK: Without adenopathy or JVD. MUSCULOSKELETAL: The patient has some pain and discomfort that radiates down to the left arm with numbness and tingling down into her forearm. The patient also has some pain and discomfort in the left hip area. Notes that there is some discomfort and light pressure in the area of the greater trochanter bursitis reproduces pain and discomfort. The patient is without significant scoliosis, kyphosis or lordosis. The patient has tenderness in the left trochanteric area near the bursa. IMPRESSION: 1. Cervical radiculopathy approximately one year post-fusion. 2. Left hip pain with pain in the area of bursa. 3. Well-healed scar in the anterior portion of the neck. 4. Left greater than right trochanteric bursitis history. 5. History of sacroiliac dysfunction. 6. Depression. 7. Hypertension. 8. Anxiety. 9. Gastroesophageal reflux. 10. Irritable bowel syndrome. RECOMMENDATIONS: We discussed treatment options with the patient. At this juncture, we will continue with her current medications. A script for her medications have been written. She desires an injection in the area of the left greater trochanteric area. Fluoroscopy using anterior and posterior viewing were implemented. Palpation over the left greater trochanteric area does reproduce her pain and discomfort. PROCEDURE NOTE: Her hip was sterilely prepped with chlorhexidine solution and allowed to dry. A 25-gauge needle was then used to numb the skin. A 20-gauge spinal needle was then advanced down into the area of the greater trochanteric area. Aspiration was negative. Total of 80 mg Depo-Medrol was injected. The patient tolerated the procedure well. There were no complications. She remained in the Pain Clinic for an appropriate amount of time. She will follow up in the future as needed. [address] [place] [address] PAIN MANAGEMENT CONSULTATION Name: NINO ARREDONDO Room: [facility] JOSE D Haroon#: [id number] Admission: 07/09/18 Attend Phys: Yoli Wills MD Discharge: Date of : 61 Report #: [id number] We would like to thank you for letting us participate in her care. We hope she continues to improve. By: [id number]. José Manuel Wills MD /nt
== END | disposition home or self-care (01) ==
LOC: M.PC 08:20
DX: S79.912A Unspecified injury of left hip, initial encounter (principal); M54.12 Radiculopathy, cervical region; X58.XXXA Exposure to other specified factors, initial encounter; Y93.9 Activity, unspecified; Y92.89 Other specified places as the place of occurrence of the external cause; Y99.9 Unspecified external cause status; Z79.899 Other long term (current) drug therapy; I10 Essential (primary) hypertension; M53.3 Sacrococcygeal disorders, not elsewhere classified; F32.9 Major depressive disorder, single episode, unspecified; F41.9 Anxiety disorder, unspecified; K21.9 Gastro-esophageal reflux disease without esophagitis; K58.9 Irritable bowel syndrome, unspecified; Z68.38 Body mass index [BMI] 38.0-38.9, adult

== ENCOUNTER → 2018-09-03 | Outpatient (CLI) | payer BC ==
--- NOTE | ~2018-09-03 | PAINCON ---
[address] [address] PAIN MANAGEMENT CONSULTATION Name: NINO ARREDONDO Room: [facility] JUAN Burkett.#: [id number] Admission: 09/03/18 Attend Phys: Yoli Wills MD Discharge: Date of : 61 Report #: [id number] THIS REPORT FOR: //name// CC: Yoli Nix DO DATE OF SERVICE: 09/03/2018 CHIEF COMPLAINT: Left hip pain, low back pain, neck and arm pain. FOLLOWUP HISTORY: The patient is a 53-year-old female who has been seen in the pain clinic. Initially, she has followup in the pain clinic because of cervical radiculopathy. As you recall, she had surgery with a cervical fusion in 2016. This was in February. Continues to have pain, which radiates down into her left arm in spite of the surgery. Finds that her medications are helped with her current medication regimen of Lyrica and hydrocodone. She feels that the Flexeril medication is helpful as well. She has noted some increased pain in her left hip. She did undergo an injection in the left hip bursa at the last visit. She noticed a significant improvement in her pain. Has notes that the pain still remains problematic and would like to proceed with an injection today. She was informed that her insurance carrier is not going to pay significant amount of the bill. She is unable to afford it at this juncture and would like a more conservative approach. She feels that a Medrol Dosepak might be helpful. Still has pain in her low back area. She has not been seen or has not had to seek medical attention because of the hip since we saw her last. ALLERGIES: No known drug allergies. CURRENT MEDICATIONS: Wellbutrin 300 mg, Flexeril 10 mg t.i.d., hydrocodone 10/325 one p.o. t.i.d., lisinopril 10 mg, Meloxicam 50 mg, metoprolol 100 mg, Zofran 50 mg, Imitrex 50 mg, and Lyrica 100 mg b.i.d. PAIN CLINIC ASSESSMENT/PQRS: 1. The patient is not being treated for osteoarthritis or rheumatoid arthritis. 2. Height 5 feet 2 inches, weight 212 pounds, BMI is 38.8. 3. Vital signs: Blood pressure 111/72, heart rate 89, respiratory rate 16, room air saturation 92%. 4. Pain intensity 7/10. 5. Fall history. The patient has not fallen in the last 3 months. 6. Blood thinner. The patient is not on a blood thinning medication. 7. Hypertension. The patient is being treated for hypertension. 8. Opioid greater than 6 weeks. The patient receives her medication from [facility]. 9. Risk assessment tool, low for opioid use. 10. [place] [address] PAIN MANAGEMENT CONSULTATION Name: NINO ARREDONDO Room: [facility] Haroon#: [id number] Admission: 09/03/18 Attend Phys: Yoli Wills MD Discharge: Date of : 61 Report #: [id number] 11. Recreational drug use. The patient denies use of recreational drugs. 12. Tobacco: The patient denies use of tobacco. 13. Alcohol: The patient denies use of alcoholic beverages. PHYSICAL EXAMINATION: GENERAL: The patient is a well-developed, well-nourished female. She appears her stated age. She is alert and oriented x 3. Her affect is appropriate. Speech is fluent. HEENT: Normocephalic, atraumatic. Extraocular muscles intact. Sclerae nonicteric. Mucous membranes are moist. NECK: Without adenopathy or JVD. The patient has some pain and discomfort that radiates down to the left arm. She has some tingling in her left arm and down into the forearm area. Has some pain and discomfort in the left hip. Pressure in the lateral portion of the hip near the greater trochanteric area reproduces pain and discomfort. The patient without significant scoliosis, kyphosis, or lordosis. IMPRESSION: 1. Cervical radiculopathy approximately 1 year post-fusion with continued pain. 2. Left hip pain in the left trochanteric area -- bursitis. 3. Well-healed scar in the anterior portion of neck. 4. History of sacroiliac dysfunction. 5. Hypertension. 6. Anxiety. 7. Gastroesophageal. Reflux. 8. Irritable bowel syndrome. RECOMMENDATIONS: We discussed treatment options with the patient. At this juncture, we will continue with her medications. A script for her medications of hydrocodone 10 1 p.o. q.i.d. 105 tablets have been provided. The patient has been given a renewal for her medications of Lyrica of 100 mg p.o. b.i.d. She will also continue with Meloxicam 15 mg daily and Flexeril. The patient will be given a Medrol Dosepak. At this point, she said she cannot afford to have an injection given the williamson. She will consider an injection in the near future. We would like to thank you for letting us participate in her care. We hope she continues to improve. The patient keeps her medication in a guarded area. She is aware that opioid medications can be problematic with long-term use because of development of addiction as well as less effectiveness because of tolerance. By: [id number]. José Manuel Wills MD /PMT
== END ==
LOC: M.PC 05:01
DX: M54.16 Radiculopathy, lumbar region (principal); I10 Essential (primary) hypertension; K21.9 Gastro-esophageal reflux disease without esophagitis; K58.9 Irritable bowel syndrome, unspecified; G89.29 Other chronic pain; Z79.899 Other long term (current) drug therapy

== ENCOUNTER → 2018-10-29 | Outpatient (CLI) | payer BC ==
[~2018-10-29] MED LIST changes: +ABILIFY 5 MG TAB5 MG PO
--- NOTE | ~2018-10-29 | PAINCON ---
[address] [address] PAIN MANAGEMENT CONSULTATION Name: NINO ARREDONDO Room: [facility] JUAN Burkett.#: [id number] Admission: 10/29/18 Attend Phys: Yoli Wills MD Discharge: Date of : 61 Report #: [id number] THIS REPORT FOR: //name// CC: Yoli Nix DATE OF SERVICE: 10/29/2018 CHIEF COMPLAINT: Pain in the left arm. I woke up with pain in my left arm with numbness and tingling down the side and in the middle, but still able to move it. HISTORY: The patient is a 53-year-old female who has been followed in the pain clinic because of chronic pain secondary to cervical radiculopathy. As you may recall, she has had surgery for left-sided arm pain in the past. She continues to have pain, which is still problematic. Her cervical fusion was performed in 2017. Continues to have pain at this juncture as well. Finds that her medications of hydrocodone, meloxicam, and Lyrica continue to be beneficial. She rates her pain as a 7/10 today. Feels that her pain overall is about 50% improved with her current medical regimen. She also has some pain in the low back area as well as in her left hip. ALLERGIES: No known drug allergies. CURRENT MEDICATIONS: Wellbutrin 300 mg, Flexeril 10 mg t.i.d., hydrocodone 10/325 one p.o. t.i.d., lisinopril 10 mg, Meloxicam 15 mg, Zofran 50 mg, Imitrex 50 mg, Lyrica 100 mg b.i.d. PAIN CLINIC ASSESSMENT/PQRS: 1. The patient is not being treated for osteoarthritis or rheumatoid arthritis. 2. Height 5 feet 2 inches, weight 213 pounds, BMI is 39. 3. VITAL SIGNS: Blood pressure 117/68, heart rate 70, respiratory rate 16, room air saturation 94%. 4. Pain intensity is 7/10. 5. Fall history: The patient has not fallen in the last 3 months. 6. Blood thinner. The patient is not on a blood thinning medication. 7. Hypertension. The patient is being treated for hypertension. 8. Opioids greater than 6 weeks. The patient is receiving her medication from one source, the pain clinic. 9. Risk assessment tool, low for opioid use. 10. Functional assessment tool. 11. Recreational drug use. The patient denies. 12. Tobacco: The patient denies use of tobacco. 13. Alcohol: The patient denies use of alcoholic beverages. PHYSICAL EXAMINATION: [place] [address] PAIN MANAGEMENT CONSULTATION Name: NINO ARREDONDO [facility] [id number] Admission: 10/29/18 Attend Phys: Yoli Wills MD Discharge: Date of : 61 Report #: [id number] GENERAL: The patient is a well-developed, well-nourished white female. Appears her stated age. She is alert and oriented x 3. Her affect is appropriate. Speech is fluent. HEENT: Normocephalic, atraumatic. Extraocular eye muscles intact. Sclerae nonicteric. Mucous membranes are moist. The patient has some pain and discomfort on the left arm. Notes the pain radiates down her left arm. She has some numbness and tingling involving the lateral portion of her arm down into the forearm and down into her fingers with some numbness and tingling in about the C6-C7 dermatomal distribution. She still feels that the muscle strength is reasonably good, but does note some continued tingling sensation. CHEST: Clear to auscultation without rhonchi or rales. ABDOMEN: Nontender, protuberant. EXTREMITIES: Lower extremity muscle strength is judged to be 5/5. The patient has some pain and discomfort in her left hip. Pain has been in the area of the greater trochanteric bursa area. The patient without significant scoliosis, kyphosis or lordosis. IMPRESSION: 1. Cervical radiculopathy approximately one year post-fusion with continued pain. 2. Left hip pain, left trochanteric area -- bursitis. 3. Well-healed scar in the anterior portion of her neck. 4. History of sacroiliac dysfunction. 5. Hypertension. 6. Anxiety. 7. Gastroesophageal reflux. 8. Irritable bowel syndrome. RECOMMENDATIONS: We discussed treatment options with the patient. At this juncture, we will continue with her medications. The patient feels that the hydrocodone continues to be beneficial. We will continue with her hydrocodone at 105 tablets per month. She will take them q. 4 hours p.r.n. as necessary. The patient will also continue with Lyrica 100 mg 1 p.o. b.i.d. The patient is having some new symptoms, which started yesterday that involves numbness and tingling involving her left arm with pain radiating down the left arm involving the arm, forearm and down into her fingers. We will provide her with a Medrol Dosepak to take in the interim. The patient will also continue with the Mobic 15 mg daily. She will continue to monitor her bowel since she does have a history of irritable bowel syndrome. We would like to thank you for letting us participate in her care. We hope she continues to improve. A script for medication has been written. By: [id number]. José Manuel Wills MD /nt
== END ==
LOC: M.PC 05:10
DX: M79.602 Pain in left arm (principal); R20.0 Anesthesia of skin; M54.12 Radiculopathy, cervical region; M25.552 Pain in left hip; I10 Essential (primary) hypertension; K21.9 Gastro-esophageal reflux disease without esophagitis; F41.9 Anxiety disorder, unspecified

== ENCOUNTER → 2018-12-24 | Outpatient (CLI) | payer BC ==
--- NOTE | ~2018-12-24 | PAINCON ---
[address] [address] PAIN MANAGEMENT CONSULTATION Name: NINO ARREDONDO Room: [facility] Patiño#: [id number] Admission: 12/24/18 Attend Phys: Yoli Wills MD Discharge: Date of : 61 Report #: [id number] THIS REPORT FOR: //name// CC: Yoli Nix DATE OF SERVICE: 12/24/2018 CHIEF COMPLAINT: Here for renewal of the medications and I am still having quite a bit of pain in my left arm and neck. HISTORY: The patient is a 53-year-old female, who has been followed in the pain clinic. As you recall, she has had pain in her left arm. She underwent surgery greater than a year ago. She continues to have pain, which is still quite problematic. She feels that Lyrica and hydrocodone are helpful. She notes pain that radiates down in her left arm. It is numb and painful down in the arm and forearm and down into her fingers. She has what seems to be some chest congestion and possible sinusitis at this point. She has been watching her grandkids this week. This has been quite hectic time for her. She has used a Medrol Dosepak in the past and found that it was beneficial. She would like to try a Medrol Dosepak at this juncture to see whether or not this will be helpful as well. She has had no complications from her medications. She states that because of her pain is so great she sometimes runs out of her medications. CURRENT MEDICATIONS: Wellbutrin 300 mg, Flexeril 10 mg t.i.d., hydrocodone 10/325 one p.o. t.i.d., lisinopril 10 mg, meloxicam 15 mg, Zofran 50 mg, Imitrex 50 mg, and Lyrica 100 mg b.i.d. ALLERGIES: No known drug allergies. PAIN CLINIC ASSESSMENT AND PQRS: 1. The patient is not being treated for osteoarthritis or rheumatoid arthritis. 2. Pain intensity is 7/10. 3. Fall history: The patient did fall in the last 3 months. She states that she tripped over some items that her grandchildren had left in place. 4. Blood thinner. The patient is not on a blood thinning medication. 5. Hypertension. The patient is being treated for hypertension. 6. Opioids greater than 6 weeks. The patient receives medication from one source, the pain clinic. 7. Risk assessment tool, low for opioid use. 8. Functional assessment tool. 9. Recreational drug use. The patient denies. 10. Tobacco: The patient denies use of tobacco. 11. Alcohol. The patient denies use of alcoholic beverages. PHYSICAL EXAMINATION: [place] [address] PAIN MANAGEMENT CONSULTATION Name: NINO ARREDONDO Room: [facility]#: [id number] Admission: 12/24/18 Attend Phys: Yoli Wills MD Discharge: Date of : 61 Report #: [id number] GENERAL: The patient is a well-developed, well-nourished white female. She appears her stated age. She is alert and oriented x 3. Her affect is appropriate. Speech is fluent. Height is 5 feet 2 inches, weight is 215 pounds, and BMI is 39. VITAL SIGNS: Blood pressure is 137/96, heart rate is 83, respiratory rate is 16, room air saturation is 92%, and temperature is 98.4. HEENT: Normocephalic, atraumatic. Extraocular eye muscles intact. Sclerae nonicteric. Mucous membranes are moist. NECK: Without adenopathy or JVD. The patient has some hoarseness to her voice. She complains of pain and discomfort in the left arm from the shoulder, arm, forearm with numbness and tingling down into the left arm. CHEST: Generally clear with some congestion. ABDOMEN: Nontender, protuberant. EXTREMITIES. Lower extremity muscle strength is judged to be 5/5 for the major muscle groups in the lower extremity. The patient has some pain and discomfort in her hips. She had a history of trochanteric bursitis. The patient is without significant scoliosis, kyphosis, or lordosis. IMPRESSION: 1. Cervical radiculopathy greater than one year post-fusion with continued pain. 2. Left hip pain, left greater trochanteric area bursitis improved. 3. Well-healed scar on the anterior portion of her neck from surgery. 4. History of sacroiliac dysfunction. 5. Hypertension. 6. Anxiety. 7. Gastroesophageal reflux. 8. Irritable bowel syndrome. RECOMMENDATIONS: We have discussed treatment options with the patient. Risks and benefits of her medications were discussed. We explained to the patient the need to take her medications as prescribed. She did have a drug screen, which did not show the hydrocodone directly and then it was described as inconsistent. The patient states that because of her pain being so severe, she did take her medication and ran out a few days prior to her last visit. We explained the need to take the medication as prescribed, she states that she would. She also feels that the Flexeril medication is helpful. She has used a Medrol Dosepak in the past, which was helpful for her hip. She would like to have another at this point and we will have written for this. She has been given a script for Lyrica 100 mg b.i.d., hydrocodone 10/325 one p.o. q.i.d., a total of 105 tablets per month, and meloxicam 15 mg daily. She will note her GI situation and stop it if she notes some GI complaints. She will follow up in the near future. We again discussed the risks and benefits of opioid use. They can be helpful initially. They can be less effective as time goes on secondary to development of tolerance. Some patients can develop habit/dependence on these medications. She feels the medications are helpful and would like [place] [address] PAIN MANAGEMENT CONSULTATION Name: NINO ARREDONDO Room: [facility]#: [id number] Admission: 12/24/18 Attend Phys: Yoli Wills MD Discharge: Date of : 61 Report #: [id number] that she has been provided with her disability. We will see how that works out. We would like to thank you for letting us to participate in her care. We hope she continues to improve. By: [id number]. José Manuel Wills MD /FERNANDO
== END ==
LOC: M.PC 05:04
DX: M54.12 Radiculopathy, cervical region (principal); M43.22 Fusion of spine, cervical region; M25.552 Pain in left hip; M53.3 Sacrococcygeal disorders, not elsewhere classified; I10 Essential (primary) hypertension; F41.9 Anxiety disorder, unspecified; K21.9 Gastro-esophageal reflux disease without esophagitis; K58.9 Irritable bowel syndrome, unspecified

== ENCOUNTER → 2019-02-13 | Outpatient (CLI) | payer BC ==
--- NOTE | 2019-02-17 09:16 | PAINCON ---
[address] [address] PAIN MANAGEMENT CONSULTATION Name: NINO ARREDONDO Room: [facility].Noris.#: [id number] Admission: 02/13/19 Attend Phys: Yoli Wills MD Discharge: Date of : 61 Report #: [id number] THIS REPORT FOR: //name// CC: Yoli Nix DATE OF SERVICE: 02/13/2019 CHIEF COMPLAINT: Left arm, neck, low back and left hip pain. HISTORY: The patient is a 53-year-old female who has been followed in the pain clinic. As you recall, she continues to have pain and discomfort, which plagues her involving her left arm, neck, and remains in spite of having undergone a cervical procedure in the past. She feels that her medications are tolerable. She has been noticing some pain in her right heel. She is planning to see a doctor in this regard in the future. Denies any other complaints. Does continue to have pain that radiates down into her left arm. Notes some numbness and tingling in her forearm and down into her fingers. She has used a Medrol Dosepak in the past and found that, that was beneficial. She has returned today with the hopes of getting a renewal of her medications. ALLERGIES: No known drug allergies. CURRENT MEDICATIONS: Wellbutrin 300 mg, Flexeril 10 mg t.i.d., hydrocodone 10/325 1 p.o. t.i.d., lisinopril 10 mg, meloxicam 15 mg, Zofran 50 mg, Imitrex 50 mg, Lyrica 100 mg b.i.d. PAIN CLINIC ASSESSMENT AND PQRS: 1. The patient is not being treated for osteoarthritis or rheumatoid arthritis. 2. The patient does have pain and rates it as a 4/10. 3. Height 5 feet 2 inches, weight 220 pounds, BMI 40.4. 4. Blood pressure 91/54, heart rate 70, respiratory rate 18, room air saturation 98%. 5. Fall history. The patient has not fallen in the last 3 months. 6. Blood thinner. The patient is not on a blood thinning medication. 7. Hypertension. The patient is being treated for hypertension. 8. Opioids greater than 6 weeks. The patient received medication from one source, the pain clinic. 9. Risk assessment tool, low for opioid use. 10. Functional assessment tool. 11. Recreational drug use, ____. 12. Tobacco: The patient denies use of tobacco. 13. Alcohol: The patient denies use of alcoholic beverages. PHYSICAL EXAMINATION: GENERAL: The patient is a well-developed, well-nourished, white/ [place] [address] PAIN MANAGEMENT CONSULTATION Name: NINO ARREDONDO Room: [facility]#: [id number] Admission: 02/13/19 Attend Phys: Yoli Wills MD Discharge: Date of : 61 Report #: [id number] female. She is alert and oriented x 3. Her affect is appropriate. Speech is fluent. HEENT: Normocephalic, atraumatic. Extraocular eye muscles intact. Sclerae nonicteric. Mucous membranes are moist. The patient has pain and discomfort involving her neck with pain that radiates down the left shoulder, arm, forearm with numbness and tingling down into her fingers. CHEST: Clear to auscultation without rhonchi. ABDOMEN: Nontender. Protuberant. EXTREMITIES: Upper extremity muscle strength judged to be 5/5 on the right side. A 5-/5 for the major muscle groups on the left side of the upper extremity. The patient has some pain and discomfort down into her hips, particularly on the left side. Has a history of greater trochanteric bursitis. She is without significant scoliosis, kyphosis, or lordosis. IMPRESSION: 1. Cervical radiculopathy greater than 1 year post-fusion with continued pain. 2. Left hip pain. History of greater trochanteric bursitis. 3. History of a well-healed scar in the anterior portion of her neck from surgery. 4. History of sacroiliac dysfunction. 5. Hypertension. 6. Anxiety. 7. Gastroesophageal reflux. 8. Irritable bowel syndrome. RECOMMENDATIONS: We discussed treatment options with the patient. At this juncture, we will continue with her medications. She feels that the medications are helpful. We have explained that opioid medications can be beneficial, but can become less effective over a period of time. She feels that she is running out of pain medications. She would like to have a dose of 4 tablets per day. We explained to the patient that there is a limit as to how much opioid medications we are able to prescribe. She will receive a script for hydrocodone today. We will increase her dose from 105 tablets per day to 120. She feels that this would be quite helpful in helping her cope with her pain and discomfort. She has taken her medications as prescribed. We explained to the patient that with drug testing, it must show that she is indeed having medications on a consistent basis in her system. A script for her medications has been written. She will call us if she has any concerns. We will continue helping with the patient's chronic pain using complex medical management using opioids. [place] [address] PAIN MANAGEMENT CONSULTATION Name: NINO ARREDONDO Room: [facility] M.R.#: [id number] Admission: 02/13/19 Attend Phys: Yoli Wills MD Discharge: Date of : 61 Report #: [id number] We would like to thank you for letting us participate in her care. We hope she continues to improve. <ELECTRONICALLY SIGNED> By: Yoli Wills MD 02/17/19 0916 [id number]. José Manuel Wills MD /PMT
== END ==
LOC: M.PC 05:03
DX: M54.12 Radiculopathy, cervical region (principal); I10 Essential (primary) hypertension; F41.9 Anxiety disorder, unspecified; K21.9 Gastro-esophageal reflux disease without esophagitis; K58.9 Irritable bowel syndrome, unspecified; Z79.899 Other long term (current) drug therapy

== ENCOUNTER → 2019-04-10 | Outpatient (CLI) | payer OTHER | LOC: M.PC 05:12 | DX: M54.5 Low back pain (principal); M79.602 Pain in left arm; M25.552 Pain in left hip ==

== ENCOUNTER → 2019-06-12 | Outpatient (CLI) | payer OTHER ==
--- NOTE | ~2019-06-12 | PAINCON ---
[address] [address] PAIN MANAGEMENT CONSULTATION Name: NINO ARREDONDO Room: [facility].#: [id number] Admission: 06/12/19 Attend Phys: Yoli Wills MD Discharge: Date of : 61 Report #: [id number] THIS REPORT FOR: //name// CC: Yoli Nix DO DATE OF SERVICE: 06/12/2019 CHIEF COMPLAINT: Left ankle sprain and left arm, neck, back and hip pain. HISTORY OF PRESENT ILLNESS: The patient is a 53-year-old female who has been seen in the Pain Clinic because of chronic pain. She had cervical radicular pain. She underwent surgery to repair this area. She has continued to have some pain, which is still problematic. She has pain that radiates down into her left arm. She feels her medications are helpful. She rates her pain as a 7/10 today. She notes that because of the cold weather, activities are more problematic. Walking, sitting, standing, climbing stairs, bending and lifting have been problematic. She feels that the medications of hydrocodone, Flexeril, Lyrica, and meloxicam are helping. She has returned today with a desire to have these medications renewed. ALLERGIES: No known drug allergies. CURRENT MEDICATIONS: Wellbutrin 300 mg, Flexeril 10 mg t.i.d., hydrocodone 10/325 one p.o. t.i.d., lisinopril 10 mg, meloxicam 15 mg, Zofran, Imitrex 50 mg, Lyrica 100 mg b.i.d. PAIN CLINIC ASSESSMENT AND PQRS: 1. The patient is not being treated for rheumatoid arthritis. She does have some osteoarthritic changes in her neck. The patient does have pain that is radiating down in her arm and rates it as a 7/10. 2. Height 5 feet 2 inches, weight 213 pounds, BMI is 38.9. 3. Vital signs: Blood pressure 120/88, heart rate 86, respiratory rate 16, room air saturation is 95%, temperature 97.6. 4. Fall history: The patient has not fallen since we saw her last. She has sprained her ankle. She has some left hip pain and discomfort. 5. Blood thinner: The patient is not on a blood thinning medication. 6. Hypertension: The patient is being treated for hypertension. 7. Opioids greater than 6 weeks: The patient receives medication from one source from Pain Clinic. 8. Risk assessment tool: Low for opioid use. 9. Functional assessment tool reviewed. 10. Recreational drug use: The patient denies. 11. Tobacco: The patient denies. 12. Alcohol: The patient denies chronic use [place] [address] PAIN MANAGEMENT CONSULTATION Name: NINO ARREDONDO Room: [facility]#: [id number] Admission: 06/12/19 Attend Phys: Yoli Wills MD Discharge: Date of : 61 Report #: [id number] PHYSICAL EXAMINATION: GENERAL: The patient is a well-developed, well-nourished, female. Appears her stated age. She is alert and oriented x 3. Her affect is appropriate. Speech is fluent. HEENT: Normocephalic, atraumatic. Extraocular eye muscles intact. Sclerae nonicteric. Mucous membranes are moist. NECK: Without adenopathy or JVD. The patient has some pain and discomfort in her neck with pain that radiates down the left shoulder into the arm with numbness and tingling involving her fingers. CHEST: Clear to auscultation without rhonchi. ABDOMEN: Nontender, protuberant. Bowel sound is present. MUSCULOSKELETAL: Upper extremity muscle strength is judged to be 5-/5 on the right side and 5-/5 on the left. The patient continues to complain of some pain in her hip in the greater trochanteric area, this involves the left side. She has some low back pain. She notes some increased discomfort with certain movements of her neck. The patient is without significant scoliosis, kyphosis or lordosis. IMPRESSION: 1. Cervical radiculopathy history, status post fusion with continued neck pain on the left. 2. Left hip pain/trochanteric bursitis. 3. History of well-healed scar in the anterior portion of her neck with pain that radiates down the left arm. 4. History of sacroiliac dysfunction. 5. Hypertension. 6. Anxiety. 7. Gastroesophageal reflux. 8. Irritable bowel syndrome. RECOMMENDATIONS: We discussed treatment options with the patient. At this juncture, she feels that her medications are helpful. We will continue with the Lyrica medication. She will also continue with hydrocodone 10/325. The patient has been helped with this medication, states that she is having no drawbacks from it. She is not showing signs of withdrawal. She is not showing signs of dependence. She is aware that the opioid medications can become less effective as time goes on. She feels that Flexeril medication is helpful with muscle spasms. She is not having any problems at this juncture with gastroesophageal problems. She continues to take meloxicam 15 mg a day. She will call us if she has any concerns. The patient is aware that opioid medications have been problematic in some people and 70,000 people the past year as a result of overdosing of medications. She would like to continue with her medication. A script for these medications has been rewritten. She will follow up in 2 months. A script for her medications of hydrocodone 10/325 one p.o., a total of 120 tablets have been written. She will continue with Lyrica 100 [place] [address] PAIN MANAGEMENT CONSULTATION Name: NINO ARREDONDO Room: [facility]#: [id number] Admission: 06/12/19 Attend Phys: Yoli Wills MD Discharge: Date of : 61 Report #: [id number] will also continue with Flexeril 10 mg 1 p.o. t.i.d. The patient will monitor her gastrointestinal tract with use of her meloxicam 15 mg 1 p.o. daily. We would like to thank you for letting us participate in her care. We hope she continues to improve. By: 24 N. José Manuel Wills MD /nt
== END ==
LOC: M.PC 09:20
DX: M54.12 Radiculopathy, cervical region (principal); I10 Essential (primary) hypertension; F41.9 Anxiety disorder, unspecified; K21.9 Gastro-esophageal reflux disease without esophagitis

== ENCOUNTER → 2019-08-07 | Outpatient (CLI) | payer OTHER ==
--- NOTE | ~2019-08-07 | PAINCON ---
[address] [address] PAIN MANAGEMENT CONSULTATION Name: NINO ARREDONDO Room: [facility].Noris.#: [id number] Admission: 08/07/19 Attend Phys: Yoli Wills MD Discharge: Date of : 61 Report #: [id number] THIS REPORT FOR: //name// cc: José Nix Vincent R. DO ~ THIS REPORT FOR: //name// CC: Yoli Nix DATE OF SERVICE: 08/07/2019 CHIEF COMPLAINT: Continued left arm pain. Some low back and hip pain. HISTORY: The patient is a 54-year-old female who has been followed in the pain clinic. She has suffered from chronic pain. She has had cervical radicular pain. She underwent a cervical operation. She has continued to have pain and discomfort in spite of the surgery. She has pain that radiates down into her left arm. She rates her pain today as 6/10. Notes that the pain continues to be problematic with activities such as walking. Temperature changes exacerbate the pain. Sitting, standing, walking, climbing stairs, bending and other activities of daily living continue to be problematic. She has returned today for renewal of her medications. She finds that the hydrocodone and Lyrica are helpful. ALLERGIES: No known drug allergies. CURRENT MEDICATIONS: Wellbutrin 300 mg, Flexeril 10 mg t.i.d., hydrocodone 10/325 one p.o. t.i.d., lisinopril 10 mg, meloxicam 15 mg, Zofran, Imitrex 50 mg, Lyrica 100 mg b.i.d. PAIN CLINIC ASSESSMENT AND PQRS: 1. The patient is not being treated for rheumatoid arthritis. She does have some arthritic changes in her neck. She does have some pain that she complains that radiates down into her left arm. 2. Height 5 feet 2 inches, weight 221 pounds, BMI is 40, blood pressure 151/106, heart rate 88, respiratory rate 16, room air saturation 97%. 3. Pain intensity 11/04. 4. Fall history: The patient has not fallen in the last 3 months. 5. Blood thinner. The patient is not on a blood thinning medication. 6. Hypertension. The patient is being treated for hypertension. 7. Opioids greater than 6 weeks. The patient received medication from one source, pain clinic. 8. Risk assessment tool, low for opioid use. 9. Functional assessment tool, reviewed. 10. Tobacco: [place] [address] PAIN MANAGEMENT CONSULTATION Name: NINO ARREDONDO Room: [facility]#: [id number] Admission: 08/07/19 Attend Phys: Yoli Wills MD Discharge: Date of : 61 Report #: [id number] 11. Alcohol. The patient denies chronic use of alcoholic beverages. PHYSICAL EXAMINATION: GENERAL: The patient is a well-developed, well-nourished female. Appears her stated age. She is alert and oriented x 3. Her affect is appropriate. Speech is fluent. HEENT: Normocephalic, atraumatic. Extraocular eye muscles intact. Sclerae nonicteric. Mucous membranes are moist. NECK: Without adenopathy or JVD. The patient continues to have pain and discomfort that radiates down in her left shoulder, arm with some numbness down into her fingers. CHEST: Clear to auscultation. ABDOMEN: Nontender, protuberant. Bowel sounds present. MUSCULOSKELETAL: The patient without significant scoliosis, lordosis or kyphosis. EXTREMITIES: Upper extremity muscle strength judged to be 5-/5 for the left and right side. The patient has had some pain in the greater trochanteric area of her hip. This involves the left side. It is somewhat better today. IMPRESSION: 1. Cervical radiculopathy, status post fusion with continued neck and radicular pain. 2. Left hip pain/trochanteric bursitis on the left. 3. History of well-healed scar in the anterior portion of her neck with pain radiating down to the left arm. 4. History of sacroiliac dysfunction. 5. Hypertension. 6. Anxiety. 7. Gastroesophageal reflux. 8. Irritable bowel syndrome. RECOMMENDATIONS: We discussed treatment options with the patient. At this juncture, we will continue with her medications. She feels that her medications are helpful. We have discussed in the past as well as the today the risk and benefits of chronic opioid use. They can become less effective as time goes on. She feels medications are helpful. They enable her to engage in activities, she would not be able to without their use. She will continue to monitor her GI tract given that she is on meloxicam. She has not complained of any gastroesophageal problems at this juncture. We have discussed the rate from opioid overdose in the past. She keeps her medications in a guarded area. She would like to continue. We will renew the patient's medications. A script for hydrocodone 10/325 one p.o. q.i.d. have been written for the next 2 months. She will call us if she has any concerns. The patient will also continue with Lyrica 100 mg b.i.d. She will continue with cyclobenzaprine for muscle spasms. She will continue with Meloxicam 15 mg 1 [place] [address] PAIN MANAGEMENT CONSULTATION Name: NINO ARREDONDO Room: [facility]#: [id number] Admission: 08/07/19 Attend Phys: Yoli Wills MD Discharge: Date of : 61 Report #: [id number] We would like to thank you for letting us participate in her care. We hope she continues to improve. By: [id number] Wills MD /nt
== END ==
LOC: M.PC 05:59
DX: M25.552 Pain in left hip (principal); M54.12 Radiculopathy, cervical region; I10 Essential (primary) hypertension; F41.9 Anxiety disorder, unspecified; K21.9 Gastro-esophageal reflux disease without esophagitis

== ENCOUNTER → 2019-09-04 | Outpatient (CLI) | payer OTHER ==
--- NOTE | 2019-09-10 15:09 | PAINCON ---
[address] [address] PAIN MANAGEMENT CONSULTATION Name: NINO ARREDONDO Room: [facility] JOSE D Kwadwo.#: [id number] Admission: 09/04/19 Attend Phys: Yoli Wills MD Discharge: Date of : 61 Report #: [id number] THIS REPORT FOR: //name// cc: José Nix Vincent R. DO ~ THIS REPORT FOR: //name// CC: Yoli Nix DATE OF SERVICE: 09/04/2019 CHIEF COMPLAINT: Continued left arm pain and discomfort as well as back and hip pain. HISTORY: The patient is a 54-year-old female who has been followed in the Pain Clinic because of chronic pain. As you recall about 2 years ago, the patient had pain and discomfort in the left arm. She underwent cervical disk surgery. Her pain has persisted despite the intervention. She continues to have pain that radiates down into her left arm. She also has had some pain in her left hip. This has been in the greater trochanteric areas. She notes that the pain in the left hip is more bothersome lately. She would like to proceed with an injection in the left hip, which has been helpful. The injection has been helpful for the greater trochanteric bursitis. She rates her pain today as a 5/10. She notes that walking, climbing stairs, bending, twisting, lifting can continue to be problematic. ALLERGIES: No known drug allergies. CURRENT MEDICATIONS: Wellbutrin 300 mg, Flexeril 10 mg t.i.d., hydrocodone 10/325 one p.o. t.i.d., lisinopril 10 mg, meloxicam 15 mg, Zofran, Imitrex 500 mg, and Lyrica 100 mg b.i.d. PAIN CLINIC ASSESSMENT AND PQRS: 1. The patient is not being treated for rheumatoid arthritis. She does have some arthritic changes in her neck. Has some pain and discomfort in the left greater trochanteric area. The patient is not being treated for rheumatoid arthritis. 2. Height 5 feet 2 inches, weight 215 pounds, BMI is 39.4. 3. Vital signs: Blood pressure is 97/61, heart rate 71, respiratory rate 16, room air saturation 92%, and temperature 98.2. 4. Pain intensity, 5/10. 5. Fall history: The patient has not fallen in the last 3 months. 6. Blood thinner. The patient is not on a blood thinning medication. 7. Hypertension. The patient is being treated for hypertension. 8. Opioids greater than 6 weeks. The patient received medication [place] [address] PAIN MANAGEMENT CONSULTATION Name: NNIO ARREDONDO Room: [facility]#: [id number] Admission: 09/04/19 Attend Phys: Yoli Wills MD Discharge: Date of : 61 Report #: [id number] Clinic. 9. Risk assessment tool, low for opioid use. 10. Functional assessment tool, reviewed. 11. Tobacco: The patient denies. 12. Alcohol. The patient denies chronic use of alcoholic beverages. PHYSICAL EXAMINATION: GENERAL: The patient is a well-developed, well-nourished female. Appears her stated age. She is alert and oriented x 3. Her affect is appropriate. Speech is fluent. HEENT: Normocephalic, atraumatic. Extraocular eye muscles intact. Sclerae nonicteric. Mucous membranes are moist. NECK: Without adenopathy or JVD. The patient does have pain in the left shoulder area with pain that radiates down into the left arm with some numbness and tingling in her fingers. CHEST: Clear to auscultation. HEART: Regular rate. ABDOMEN: Nontender. MUSCULOSKELETAL: The patient without significant scoliosis, kyphosis or lordosis. The patient does have some pain and discomfort in the left hip area. Palpation over the left greater trochanteric area does reproduce a significant portion of her discomfort. The patient also complains of some low back discomfort. IMPRESSION: 1. Cervical radiculopathy, status post fusion with continued neck pain with radicular component. 2. Left hip pain/greater trochanteric bursitis on the left. 3. History of well-healed scar in the anterior portion of the neck with pain radiating down to her arm. 4. History of sacroiliac dysfunction. 5. Hypertension. 6. Anxiety. 7. Gastroesophageal reflux. 8. Irritable bowel syndrome. RECOMMENDATIONS: We discussed treatment options with the patient. At this juncture, we will continue with her medications. A script for her medications have been renewed. The patient is aware that the opioid medications can become less effective as time goes on secondary to development of tolerance. We will continue with the patient's pregabalin medications 100 mg b.i.d. She will also continue with meloxicam 15 mg daily. She will monitor her GI tract. Should she find that her pain in the stomach starts to become problematic, she will stop the nonsteroidal anti-inflammatory medication because it may well be from the nonsteroidals. The patient will also continue with hydrocodone 10 mg 1 p.o. t.i.d. The patient will also use Flexeril 10 mg t.i.d. as needed. The patient [facility] [address] [place] [address] PAIN MANAGEMENT CONSULTATION Name: NINO ARREDONDO Room: [facility]..#: [id number] Admission: 09/04/19 Attend Phys: Yoli Wills MD Discharge: Date of : 61 Report #: [id number] will call us if she has any concerns. We would like to thank you for letting us participate in her care. We hope she continues to improve. <ELECTRONICALLY SIGNED> By: Yoli Wills MD 09/10/19 1509 [id number]. José Manuel Wills MD /nt
== END ==
LOC: M.PC 04:58
DX: M54.12 Radiculopathy, cervical region (principal); M54.5 Low back pain; K58.9 Irritable bowel syndrome, unspecified; K21.9 Gastro-esophageal reflux disease without esophagitis; F41.9 Anxiety disorder, unspecified; I10 Essential (primary) hypertension; M87.39 Other secondary osteonecrosis, multiple sites; M25.552 Pain in left hip; F11.20 Opioid dependence, uncomplicated; Z79.899 Other long term (current) drug therapy

== ENCOUNTER → 2019-11-27 | Outpatient (CLI) | payer MEDICAID ==
--- NOTE | 2019-12-10 11:31 | PAINCON ---
[address] [address] PAIN MANAGEMENT CONSULTATION Name: NINO DELGADO I Room: [facility] JUAN Patiño#: [id number] Admission: 11/27/19 Attend Phys: Yoli Wills MD Discharge: Date of : 61 Report #: [id number] THIS REPORT FOR: //name// cc: José iNx Vincent R. DO ~ THIS REPORT FOR: //name// CC: Yoli Nix DO DATE OF SERVICE: 11/27/2019 CHIEF COMPLAINT: Here for medications. Still having pain in the low back, left hip, and neck. HISTORY: The patient is a 54-year-old female who has been followed in the pain clinic. As you may recall, she has had surgery on her neck. She continues to have pain in the left arm. This pain radiates down into her arm with some numbness and tingling. She also has pain in her left hip. She has been treated for trochanteric bursitis. She recently went to [place]. She returned. She had a reasonably good time. There have been some problems with her stay there because of the COVID-19 problems. She rates her pain as a 7/10. She would like to have her medications renewed. Notes that walking, sitting, standing, climbing stairs, bending and lifting can be problematic. ALLERGIES: No known drug allergies. CURRENT MEDICATIONS: Wellbutrin 300 mg, Flexeril 10 mg t.i.d., hydrocodone 10/325 one p.o. t.i.d., lisinopril 10 mg, meloxicam 15 mg, Zofran, Imitrex 500 mg, and Lyrica 100 mg b.i.d. PAIN CLINIC ASSESSMENT/PQRS: 1. She does have some arthritic changes in her neck. She has some pain and discomfort in the left greater trochanteric area involving her hip. She is not being treated for rheumatoid arthritis. 2. Height 5 feet 2 inches, weight 213 pounds, BMI is 39.0. 3. Vital signs: Blood pressure 135/83, heart rate 67, respiratory rate 16, room air saturation 97%, and temperature 97.3. 4. Pain intensity 7/10. 5. Fall history: The patient has not fallen in the last 3 months. 6. Blood thinner. The patient is not on a blood thinning medication. 7. Hypertension. The patient is being treated for hypertension. 8. Opioids greater than 6 weeks. The patient received medication from the pain clinic. 9. Risk assessment tool, [place] [address] PAIN MANAGEMENT CONSULTATION Name: NINO DELGADO I [id number] Admission: 11/27/19 Attend Phys: Yoli Wills MD Discharge: Date of : 61 Report #: [id number] 10. Functional assessment tool, reviewed. 11. Tobacco: The patient denies. 12. Alcohol. The patient denies use of chronic alcoholic beverages. PHYSICAL EXAMINATION: GENERAL: The patient is a well-developed, well-nourished female. Appears her stated age. She is alert and oriented x 3. Her affect is appropriate. Speech is fluent. HEENT: Normocephalic, atraumatic. Extraocular eye muscles intact. Sclerae nonicteric. Mucous membranes are moist. The patient is wearing a mask. NECK: Without adenopathy or JVD. The patient does have some pain in the left shoulder with pain that radiates down to her left arm with some numbness and tingling involving her fingers. CHEST: Clear to auscultation. HEART: Regular rate. ABDOMEN: Nontender. MUSCULOSKELETAL: Without significant scoliosis, kyphosis, or lordosis. The patient has some discomfort in the left hip area. Palpation in this area of the greater trochanteric area produces slight amount of discomfort. IMPRESSION: 1. Cervical radiculopathy, status post fusion with continued pain with radiculopathy. 2. Left hip pain. History of greater trochanteric bursitis on the left. 3. History of well-healed scar in the anterior portion of her neck with pain that continues radiating down to her left arm. 4. Sacroiliac dysfunction. 5. Hypertension. 6. Anxiety. 7. Gastroesophageal reflux. 8. Irritable bowel syndrome. RECOMMENDATIONS: We discussed treatment options with the patient. At this juncture, we will continue with her medications. A script for her medications has been renewed. She will continue with Lyrica 100 mg p.o. b.i.d. She will also continue with hydrocodone 10/325 one p.o. q.i.d. 120 tablets have been provided for the next 3 months. She will also continue with Flexeril 10 mg 1 p.o. t.i.d. for muscle spasms. She will use Mobic 15 mg daily. She will stop taking this medication should she notice any problems with her GI tract. We would like to thank you for letting us participate in her care. We hope she continues to improve. <ELECTRONICALLY SIGNED> By: Yoli Wills MD 12/10/19 1131 [id number]. MD ALEC Nielsen
== END ==
LOC: M.PC 10:00
PROVIDERS: ATTEND Anesthesiology Pain Medicine
DX: M54.12 Radiculopathy, cervical region (principal); M25.552 Pain in left hip; M53.3 Sacrococcygeal disorders, not elsewhere classified; I10 Essential (primary) hypertension; K21.9 Gastro-esophageal reflux disease without esophagitis; F41.9 Anxiety disorder, unspecified; K58.9 Irritable bowel syndrome, unspecified

== ENCOUNTER → 2020-02-19 | Outpatient (CLI) | payer OTHER ==
--- NOTE | 2020-02-24 13:31 | PAINCON ---
[address] [address] PAIN MANAGEMENT CONSULTATION Name: NINO DELGADO I Room: [facility] JOSE D Kwadwo.#: [id number] Admission: 02/19/20 Attend Phys: Yoli Wills MD Discharge: Date of : 61 Report #: [id number] THIS REPORT FOR: //name// cc: José Nix Vincent R. DO ~ THIS REPORT FOR: //name// CC: Yoli Nix DATE OF SERVICE: 02/19/2020 CHIEF COMPLAINT: Neck pain, mid back pain with pain that radiates down into the left arm. Left hip pain. HISTORY: The patient is a 54-year-old female who has been followed in the pain clinic because of chronic pain. As you may recall about 2 years ago, she underwent surgery for the left neck pain. She continues to have pain and discomfort in the left upper back area as well as pain that radiates down from her shoulder into her forearm and fingers. She has pain in her left hip. She also has low back pain and discomfort. She has suffered from trochanteric bursitis. She feels that her medications are helpful. Notes that activities such as walking, sitting, standing, climbing stairs, lifting and bending all can contribute to her pain and discomfort. She feels her medications are efficacious. She rates her pain as a 7/10. She is having no complications with them. She is able to think clearly. ALLERGIES: No known drug allergies. CURRENT MEDICATIONS: Wellbutrin 300 mg, Flexeril 10 mg t.i.d., hydrocodone 10/325 one p.o. t.i.d., lisinopril 10 mg, meloxicam 15 mg, Zofran, Imitrex 500 mg, Lyrica 100 mg b.i.d. PAIN CLINIC ASSESSMENT AND PQRS: 1. The patient does have some arthritis, some arthritic changes in her neck. She has had pain and discomfort in the left lower leg and hip area secondary to trochanteric bursitis. She is not being treated for rheumatoid arthritis. 2. Height 5 feet 2 inches, weight 210 pounds, BMI is 38. 3. Vital Signs: Blood pressure 141/81, heart rate 71, respiratory rate 18, room air saturation is 95%, temperature 97.4. 4. Pain score 7/10. 5. Fall history: The patient has not fallen since we saw her last. 6. Blood thinner. The patient is not on a blood thinning medication. 7. Hypertension. The patient is being treated for hypertension. 8. Opioids greater than 6 weeks. The patient receives medication from [place] [address] PAIN MANAGEMENT CONSULTATION Name: NINO DELGADO I Room: [facility]#: [id number] Admission: 02/19/20 Attend Phys: Yoli Wills MD Discharge: Date of : 61 Report #: [id number] 9. Risk assessment tool, low for opioid use. 10. Functional assessment tool, reviewed. 11. Tobacco: The patient denies. 12. Alcohol. The patient denies use of chronic alcoholic beverages. PHYSICAL EXAMINATION: GENERAL: The patient is a well-developed, well-nourished female. Appears her stated age. She is alert and oriented x 3. Her affect is appropriate. Speech is fluent. HEENT: Normocephalic, atraumatic. Extraocular eye muscles intact. Sclerae nonicteric. Mucous membranes are moist. The patient is wearing a facial covering. The patient complains of pain and discomfort on the left side with pain radiating down from her shoulder into her hands and with some numbness and tingling involving her fingers. CHEST: The patient has some pain in the mid back area and low back area. ABDOMEN: Nontender. MUSCULOSKELETAL: Without significant scoliosis, kyphosis or lordosis. The patient has some discomfort in the left hip. Palpation in this area of the greater trochanteric area shows some discomfort. IMPRESSION: 1. Cervical radiculopathy, status post fusion with continued pain with radiation down into her left arm. 2. Left hip pain with history of greater trochanteric bursitis. 3. History of well-healed scar in the anterior portion of the neck with pain that radiates down into her arm. 4. Sacroiliac joint dysfunction. 5. Hypertension. 6. Anxiety. 7. Gastroesophageal reflux. 8. Irritable bowel syndrome. RECOMMENDATIONS: We discussed treatment options with the patient. At this juncture, things are going reasonably well. She feels that her medications are helpful. She would like to have the medications continued. She keeps her medications in a guarded area. A script for her medications have been renewed. She will continue with Flexeril 10 mg 1 p.o. t.i.d. She will also continue with hydrocodone 10 mg 1 p.o. t.i.d. She will continue with meloxicam 15 mg. She will monitor her GI status. She will stop taking these medications her stomach starts to show signs of irritation. She will also continue Lyrica 100 mg b.i.d. She will call us if she has any concerns. [place] [address] [place] [address] PAIN MANAGEMENT CONSULTATION Name: NINO DELGADO I Room: [facility]#: [id number] Admission: 02/19/20 Attend Phys: Yoli Wills MD Discharge: Date of : 61 Report #: [id number] We would like to thank you for letting us participate in her care. We hope she continues to improve. <ELECTRONICALLY SIGNED> By: Yoli Wills MD 02/24/20 1331 [id number]. José Manuel Wills MD /nt
== END ==
LOC: M.PC 09:58
PROVIDERS: ATTEND Anesthesiology Pain Medicine
DX: M70.62 Trochanteric bursitis, left hip (principal); M54.12 Radiculopathy, cervical region; I10 Essential (primary) hypertension; K21.9 Gastro-esophageal reflux disease without esophagitis; K58.9 Irritable bowel syndrome, unspecified; F41.9 Anxiety disorder, unspecified

== ENCOUNTER → 2020-05-13 | Outpatient (CLI) | payer OTHER | LOC: M.PC 09:46 | PROVIDERS: ATTEND Anesthesiology Pain Medicine | DX: M25.552 Pain in left hip (principal); M54.2 Cervicalgia; M79.632 Pain in left forearm; M79.645 Pain in left finger(s) ==

== ENCOUNTER → 2020-08-05 | Outpatient (CLI) | payer OTHER | LOC: M.PC 11:20 | PROVIDERS: ATTEND Anesthesiology Pain Medicine | DX: M54.12 Radiculopathy, cervical region (principal); M25.552 Pain in left hip; M79.632 Pain in left forearm; Z98.1 Arthrodesis status; M53.3 Sacrococcygeal disorders, not elsewhere classified; I10 Essential (primary) hypertension; K21.9 Gastro-esophageal reflux disease without esophagitis; K58.0 Irritable bowel syndrome with diarrhea; M77.11 Lateral epicondylitis, right elbow; F41.9 Anxiety disorder, unspecified; Z87.39 Personal history of other diseases of the musculoskeletal system and connective tissue ==

== ENCOUNTER → 2020-10-28 | Outpatient (CLI) | payer MEDICAID | LOC: M.PC 08:44 | PROVIDERS: ATTEND Anesthesiology Pain Medicine | DX: M54.12 Radiculopathy, cervical region (principal); M25.552 Pain in left hip; I10 Essential (primary) hypertension; F41.9 Anxiety disorder, unspecified; K21.9 Gastro-esophageal reflux disease without esophagitis; K58.9 Irritable bowel syndrome, unspecified; M77.11 Lateral epicondylitis, right elbow ==

== ENCOUNTER → 2021-01-20 | Outpatient (CLI) | payer MEDICARE | LOC: M.PC 12-23 08:30 | PROVIDERS: ATTEND Anesthesiology Pain Medicine | DX: M54.12 Radiculopathy, cervical region (principal); M25.552 Pain in left hip; I10 Essential (primary) hypertension; F41.9 Anxiety disorder, unspecified; K21.9 Gastro-esophageal reflux disease without esophagitis; M77.11 Lateral epicondylitis, right elbow; K58.9 Irritable bowel syndrome, unspecified ==

== ENCOUNTER → 2021-04-14 | Outpatient (CLI) | payer MEDICARE | LOC: M.PC 10:50 | PROVIDERS: ATTEND Anesthesiology Pain Medicine | DX: M54.12 Radiculopathy, cervical region (principal); M25.552 Pain in left hip; I10 Essential (primary) hypertension; K21.9 Gastro-esophageal reflux disease without esophagitis; K58.8 Other irritable bowel syndrome; M77.11 Lateral epicondylitis, right elbow; F41.9 Anxiety disorder, unspecified; Z79.899 Other long term (current) drug therapy ==

== ENCOUNTER → 2021-07-07 | Outpatient (CLI) | payer MEDICARE ==
[~2021-07-07] MED LIST changes: +LOPRESSOR50 MG PO
== END ==
LOC: M.PC 10:28
PROVIDERS: ATTEND Anesthesiology Pain Medicine
DX: K21.9 Gastro-esophageal reflux disease without esophagitis (principal); I10 Essential (primary) hypertension; F41.9 Anxiety disorder, unspecified; K58.9 Irritable bowel syndrome, unspecified; M17.11 Unilateral primary osteoarthritis, right knee; M54.12 Radiculopathy, cervical region; M99.04 Segmental and somatic dysfunction of sacral region; M25.552 Pain in left hip; Z79.899 Other long term (current) drug therapy